=== PATIENT | male | born 1945 | race Caucasian/White ===

== ENCOUNTER 2020-07-03 12:39 | Inpatient (IN) | payer MEDICARE, OTHER, MEDICAID, SELFPAY ==
[2020-07-03] VITALS (11 sets, daily range): BP systolic 118–138; BP diastolic 69–93; PULSE 70–92; RESP 14–18; TEMP 36.4–36.9; O2SAT 93–100; BMI 29.7; BMI 29.8
--- NOTE | 2020-07-03 13:01 | EKG12_ITS ---
Test Reason : SOB Blood Pressure : / mmHG Vent. Rate : 091 BPM Atrial Rate : 091 BPM P-R Int : 144 ms QRS Dur : 152 ms QT Int : 404 ms P-R-T Axes : 060 -47 013 degrees QTc Int : 496 ms Sinus rhythm with Premature atrial complexes Left axis deviation Right bundle branch block Abnormal ECG Confirmed by RENÉE AHMADI, MARGAUX ([id number]), continuity editor DORINA TIJERINA ([id number]) on 07/08/2020 9:30:41 A M Referred By: JAXON Confirmed By:PAM CHINCHILLA MD
--- NOTE | 2020-07-03 13:15 | RAD_ITS ---
STUDY: X-RAY CHEST REASON FOR EXAM: Male, 75 years old. Recently COVID positive, from alf, more lethargic TECHNIQUE: Single AP portable view of the chest. COMPARISON: Comparison is made with prior study dated 12/08/2016. FINDINGS: EKG electrodes are seen. There is evidence of patchy bilateral pulmonary infiltrates worse in the left lower lobe. There is no demonstrated pleural abnormality. There is mild cardiac enlargement. Normal mediastinum and yandel. Normal visualized pulmonary arteries. There is atherosclerotic tortuosity of the aortic arch and descending thoracic aorta. There are diffuse degenerative changes of the visualized thoracic spine. Normal visualized ribs, clavicles, and shoulders. There is no demonstrated abnormality of the visualized soft tissue structures of the upper abdomen. RAD/Chest 1 View (Portable) IMPRESSION: Patchy bilateral pulmonary infiltrates worse in the lower lobes. Electronically Signed: Jose Villalobos, at 13:56 EST , Service support ,
[2020-07-03] MEDS: 0.9% Normal Saline 1,000 ML 125 ML IV ×2 (13:48→23:59)
[2020-07-03 13:52] LABS: Absolute Lymphocyte Count 0.86 X10^3/uL (0.83-4.51); Absolute Neutrophil Count 7.6 X10^3/uL (2.0-7.7); Basophil# 0.01 X10^3/uL; Basophil% 0.1 % (0-1); Eosinophil# 0.03 X10^3/uL; Eosinophils% 0.3 % (0-5); Hematocrit 35.2 % (40-54); Hemoglobin 11.1 g/dL (13.0-16.5); Lymphocyte # 0.86 X10^3/ul (4.0); Lymphocyte % 8.8 % (19-41); Mean Corp Hgb Conc 31.5 g/dL (32-36); Mean Corpuscular Hgb 28.8 pg (27.0-32.0); Mean Corpuscular Volume 91.2 fL (80-94); Mean Platelet Vol. 9.4 fl (6.2-12.0); Monocyte# 1.16 X10^3/uL; Monocyte% 11.8 % (0-10); NRBC Flagged by Analyzer 0 % (0-5); Neutrophil # 7.64 X10^3/uL (2.7-7.7); Platelet Count 403 K/mm3 (150-450); RBC Distribution Width CV 13.1 % (11.6-14.6); RBC Distribution Width SD 43.4 fl (35.1-43.9); Red Blood Count 3.86 M/mm3 (4.6-6.2); White Blood Count 9.8 K/mm3 (4.4-11.0)
[2020-07-03 14:05] LABS: Fibrinogen 616 mg/dl (203-444)
[2020-07-03 14:12] LABS: ALB/GLOB Ratio 0.6 RATIO (0.9-2.4); AST(SGOT) 28 U/L (15-37); Alanine Aminotransfer ALT/SGPT 38 U/L (16-61); Albumin, Serum 2.6 g/dL (3.2-5.0); Alkaline Phosphatase 80 U/L (45-117); Anion Gap 4 (5-15); BNP,B-Type NATRIURETIC PEPTIDE 72.5 pg/mL (0-100); BUN 30 mg/dL (7-18); BUN/Creat Ratio 30.5 RATIO (10-20); CPK Total, Creatine Kinase 61 U/L (39-308); Calcium,Total 9.1 mg/dL (8.5-10.1); Chloride 100 mmol/L (98-107); Creatinine, Serum 0.98 mg/dL (0.70-1.30); EST Glomerular Filtration Rate 79 mL/min (>60); Est Glom Filt Rate - Afr Amer 96 mL/min (>60); Estimated Creatinine Clearance 72.59 ml/min; Globulin 4.7 g/dL (2.2-4.2); Glucose 191 mg/dL (74-106); LDH 271 U/L (87-241); Potassium 3.7 mmol/L (3.5-5.1); Protein, Total 7.3 g/dL (6.4-8.2); Sodium Level 138 mmol/L (136-145)
--- NOTE | 2020-07-03 14:12 | ED.VIS.GEN ---
History of Present Illness Chief Complaint: Shortness of Breath Informant: Patient Narrative: This is a 75-year-old male who is presenting from longterm with COVID-19. He has concerns dementia but is more confused than normal per longterm.. He has been taking azithromycin and hydroxychloroquine as an outpatient. He has had nausea and vomiting for couple days. He is not been eating and drinking per the longterm f for 3 to 4 days. Today he was having desaturations on oxygen into the 80s. DNR [facility] arrest on the chart. - Past Medical History (1) Insomnia Status: Chronic (2) Charcot ankle Status: Chronic (3) Diabetes Status: Chronic Past Medical History - Allergies and Home Meds Allergies/Adverse Reactions: Allergies No Known Allergies Allergy (Verified 12/01/16 19:19) Primary Care Physician: Nasir López MD [NON-STAFF] - Past Medical History: - - Parkinson's Surgical History: cholecystectomy Lives: [facility] Smoking Status: Never smoker Drugs: None Review of Systems General: Reports: Fever, Malaise. Denies: Chills, Sweats Eyes: Denies: Visual changes - bilaterally, Diplopia ENT: Denies: Rhinorrhea, Sore throat Cardiovascular: Denies: Chest pain, Palpitations Respiratory: Reports: Dyspnea, Cough. Denies: Dyspnea on exertion Gastrointestinal: Denies: Abdominal pain, Nausea, Vomiting, Diarrhea, Melena, Hematochezia Genitourinary: Denies: Dysuria, Hematuria, Frequency Musculoskeletal: Reports: Extremity Pain. Denies: Back pain Skin: Denies: Rash, Wounds Neurological: Reports: Headache. Denies: Weakness, Numbness Physical Exam Vital Signs/Narrative: Vital Signs Temp Pulse Resp BP Pulse Ox 07/03/20 12:54 93 07/03/20 12:46 100 07/03/20 12:40 97.5 F L 79 18 118/69 100 Inital Vital Signs reviewed: Yes General: Well nourished, Well developed, No Acute Distress Head: Normocephalic, Atraumatic Eyes: Perrl, EOMI ENT: No rhinorrhea, Dry mucous membranes Neck: Supple, Nontender Cardiovascular: Regular rate, Regular rhythm, No murmurs Respiratory: No distress, CTA bilaterally, Chest nontender Abdomen: Soft, Nontender, Nondistended, Normal bowel sounds Back: Nontender, Normal Inspection Extremities: No edema, - - Chronic changes in the feet consistent with Charcot joint Skin: Normal color, No rash Neurological: Alert, Cranial nerves II-XII grossly intact, Normal Strength, Normal Sensation, - - Orientated to Alban Hardy DO, MS, FACEP Psychological: Normal affect, Normal Mood Diagnostic/Tx/Re-eval Clinical Impression(s) from Imaging Studies Chest X-Ray 07/03/20 13:15 IMPRESSION: Patchy bilateral pulmonary infiltrates worse in the lower lobes. Electronically Signed: Jose Griselda, at 13:56 EST , Service support , Chest CTA 07/03/20 14:32 IMPRESSION: Multiple small pulmonary emboli in the upper lobe pulmonary arterial branches. Diffuse bilateral pulmonary infiltrates as described. Electronically Signed: Jose Griselda, at 15:10 EST , Service support , Laboratory Last Values WBC 9.8 K/mm3 (4.4-11.0) 07/03/20 13:25 RBC 3.86 M/mm3 (4.6-6.2) L 07/03/20 13:25 Hgb 11.1 g/dL (13.0-16.5) L 07/03/20 13:25 Hct 35.2 % (40-54) L 07/03/20 13:25 MCV 91.2 fL (80-94) 07/03/20 13:25 MCH 28.8 pg (27.0-32.0) 07/03/20 13:25 MCHC 31.5 g/dL (32-36) L 07/03/20 13:25 RDW Std Deviation 43.4 fl (35.1-43.9) 07/03/20 13:25 RDW Coeff of Srinivasa 13.1 % (11.6-14.6) 07/03/20 13:25 Plt Count 403 K/mm3 (150-450) 07/03/20 13:25 MPV 9.4 fl (6.2-12.0) 07/03/20 13:25 Immature Gran % (Auto) 1.000 % (0.0-0.9) H 07/03/20 13:25 Neut % (Auto) 78.0 % (47-70) H 07/03/20 13:25 Lymph % (Auto) 8.8 % (19-41) L 07/03/20 13:25 Sac % (Auto) 11.8 % (0-10) H 07/03/20 13:25 Eos % (Auto) 0.3 % (0-5) 07/03/20 13:25 Baso % (Auto) 0.1 % (0-1) 07/03/20 13:25 Absolute Neuts (auto) 7.6 X10^3/uL (2.0-7.7) 07/03/20 13:25 Absolute Lymphs (auto) 0.86 X10^3/uL (0.83-4.51) 07/03/20 13:25 Nucleated RBC % 0 % (0-5) 07/03/20 13:25 Fibrinogen 616 mg/dl (203-444) H 07/03/20 13:25 Sodium 138 mmol/L (136-145) 07/03/20 13:25 Potassium 3.7 mmol/L (3.5-5.1) 07/03/20 13:25 Chloride 100 mmol/L (98-107) 07/03/20 13:25 Carbon Dioxide 34.0 mmol/L (21.0-32.0) H 07/03/20 13:25 Anion Gap 4 (5-15) L 07/03/20 13:25 BUN 30 mg/dL (7-18) H 07/03/20 13:25 Creatinine 0.98 mg/dL (0.70-1.30) 07/03/20 13:25 Estim Creat Clear Calc 72.59 ml/min 07/03/20 13:25 Est GFR (MDRD) Af Amer 96 mL/min (>60) 07/03/20 13:25 Est GFR (MDRD) Non-Af 79 mL/min (>60) 07/03/20 13:25 BUN/Creatinine Ratio 30.5 RATIO (10-20) H 07/03/20 13:25 Glucose 191 mg/dL (74-106) H 11/18/20 13:25 Lactic Acid 1.8 mmol/L (0.4-1.9) 07/03/20 13:25 Calcium 9.1 mg/dL (8.5-10.1) 07/03/20 13:25 Total Bilirubin 0.60 mg/dL (0.20-1.00) 07/03/20 13:25 AST 28 U/L (15-37) 07/03/20 13:25 ALT 38 U/L (16-61) 07/03/20 13:25 Alkaline Phosphatase 80 U/L (45-117) 07/03/20 13:25 Lactate Dehydrogenase 271 U/L (87-241) H 07/03/20 13:25 Total Creatine Kinase 61 U/L (39-308) 07/03/20 13:25 Troponin I 0.022 ng/mL (<0.045) 07/03/20 13:25 C-React Prot Ext Range 144.00 mg/L (0.0-3.0) H 07/03/20 13:25 B-Natriuretic Peptide 72.5 pg/mL (0-100) 07/03/20 13:25 Total Protein 7.3 g/dL (6.4-8.2) 07/03/20 13:25 Albumin 2.6 g/dL (3.2-5.0) L 07/03/20 13:25 Globulin 4.7 g/dL (2.2-4.2) H 07/03/20 13:25 Albumin/Globulin Ratio 0.6 RATIO (0.9-2.4) L 07/03/20 13:25 Procalcitonin 0.07 ng/mL (0.00-0.09) 07/03/20 13:25 - EKG Initial EKG Interpretation: Sinus Rhythm - EKG shows a sinus rhythm with frequent PACs. Noted right bundle branch block. Rate is 91. - Medical Decision Making Patient has COVID-19. He is showing signs of dehydration and altered mental status. He has had episodes of hypoxemia. Patient received dental hydration, Decadron, Rocephin and azithromycin. CTA of the chest demonstrates multiple small areas of embolism. He was given a dose of Eliquis. Our plan will be admission into the hospital. ED Disposition - Plan for ED Patient: Disposition: Acute Care Hospital [facility] Diagnosis: COVID-19, Hypoxia, Parkinson's disease dementia, Dehydration, Encephalopathy acute, Pulmonary embolism Referrals: Nasir López MD [NON-STAFF] -
[2020-07-03 14:15] LABS: Procalcitonin 0.07 ng/mL (0.00-0.09)
[2020-07-03 14:22] LABS: Lactic Acid 1.8 mmol/L (0.4-1.9)
[2020-07-03] MEDS: Ondansetron 4 MG/2 ML Vial IV (14:23)
[2020-07-03] MEDS: dexAMETHasone 10 MG/ML Vial IV (14:24)
--- NOTE | 2020-07-03 14:32 | CT_ITS ---
STUDY: CTA CHEST REASON FOR EXAM: Male, 75 years old. LETHARGIC,DESTATING,COVID+ RADIATION DOSAGE (If Supplied By Facility): CTDIvol = ( 11.44 ) mGy, DLP = ( 563.45 ) mGycm TECHNIQUE: The examination was performed with the intravenous administration of IV 100mL Isovue-370. Post-processing of the angiographic images was performed, with multiplanar reformation and 3D reconstruction. Individualized dose optimization techniques were used for this CT. COMPARISON: None. FINDINGS: Multiple intraluminal filling defects in small branches of the right and left upper lobe pulmonary arteries suggestive of a pulmonary emboli. There is atherosclerotic calcification of the aortic arch and descending thoracic aorta with tortuosity. There is no demonstrated aortic dissection. There are calcifications of the coronary arteries. There are visualized mediastinal lymph nodes, which are within normal size limits, and with normal morphology. Normal hilar regions. Normal visualized trachea and bronchi. The lungs are well expanded. Diffuse bilateral infiltrates more pronounced in the lower lobes. Infiltrates also seen in the upper lobes as well. Calcified pleural plaques at the level of the diaphragms bilaterally. Normal chest wall structures. There are degenerative changes of thoracic spine. Normal visualized upper abdomen. CT/CTA Chest W/WO Contrast IMPRESSION: Multiple small pulmonary emboli in the upper lobe pulmonary arterial branches. Diffuse bilateral pulmonary infiltrates as described. Electronically Signed: Jose Villalobos, at 15:10 EST , Service support ,
[2020-07-03] MEDS: Ceftriaxone 1 GM/50 ML BAG IV (15:01)
--- NOTE | 2020-07-03 15:51 | HP.PCM_ITS ---
History of Present Illness Date of Admission: 07/03/20 Chief Complaint: shortness of breath The patient is a 75 year old M with a past medical history as outlined who was admitted through the ED on 07/03/2020 with a complaint of shortness of breath. Patient was [facility] with Covid as he had had nausea and vomiting and had not been eating or drinking well the last day. Test was done and he was positive. He was put on azithromycin and hydroxychloroquine as well as p.o. prednisone 40 mg daily in the jail. However patient was deteriorating and Was desaturating into the 80s in the Retirement so He Was Brought into the ED Today. Patient was confused and not able to give much of a history. Most of the history was obtained from his granddaughter who is a nurse in the ICU and from the ED physicians documentation. In the ED, vitals showed temperature of 98.2 with blood pressure of 133/85, pulse rate of 75 respiratory rate of 16. He was requiring 8 L of oxygen and is usually not on oxygen in the jail. Chemistry was unremarkable and lactic acid was 1.4. BNP was not elevated initial troponin was negative. Procalcitonin was 0.07. CBC was also unremarkable. ET of the chest showed diffuse bilateral pulmonary infiltrates as well as multiple small pulmonary emboli in the upper lobe pulmonary arterial branches. He has been admitted to be managed for acute hypoxic respiratory failure due to COVID-19 infection and bilateral pulmonary emboli. [] Past Medical History Past Medical History (Chronic Problems): Chronic Problems Diabetes (Chronic) Neuropathy (Chronic) Charcot ankle (Chronic) Insomnia (Chronic) Allergies No Known Allergies Allergy (Verified 12/01/16 19:19) Home Medications: Ambulatory Orders Medication Instructions Recorded Acetaminophen [Tylenol Extra 500 mg PO BID PRN 07/03/20 Strength] Aspirin E.C. [Ecotrin] 81 mg PO DAILY@0800 07/03/20 Cholecalciferol (Vitamin D3) 2,000 unit PO DAILY 07/03/20 [D3-1999] Cyanocobalamin (Vitamin B-12) 500 mcg PO DAILY 07/03/20 [Vitamin B-12] Donepezil HCl 10 mg PO QHS 07/03/20 Folic Acid 1 mg PO DAILY 07/03/20 Furosemide [Lasix] 40 mg PO DAILY 07/03/20 Guaifenesin/Dextromethorphan 10 ml PO Q6H PRN 07/03/20 [Tussin Dm Liquid] Losartan Potassium [Cozaar] 25 mg PO DAILY 07/03/20 Melatonin 3 mg PO QHS 07/03/20 Memantine HCl 5 mg PO BID 07/03/20 Nitrofurantoin Macrocrystal 25 mg PO QHS 07/03/20 [Macrodantin] Potassium Chloride [Klor-Con M10] 10 meq PO DAILY 07/03/20 Sertraline HCl [Zoloft] 12.5 mg PO DAILY 07/03/20 Tamsulosin HCl [Flomax] 0.8 mg PO QHS 07/03/20 Tizanidine HCl 2 mg PO BID 07/03/20 metFORMIN HCl [Glucophage] 500 mg PO BIDCM 07/03/20 Surgical History: cholecystectomy Psychiatric History: No pertinent psych hx Lives: Retirement Smoking Status: Never smoker Drugs: None Review of Systems Unable to obtain accurate/complete ROS d/t: patient confused and demented VTE Information - Inpt Only VTE Present on Admission: Yes VTE Pharm Prophylaxis ordered?: Yes Patient Problems: Active and Suspected Problems COVID-19 (Acute) Hypoxia (Acute) Parkinson's disease dementia (Acute) Dehydration (Acute) Encephalopathy acute (Acute) Pulmonary embolism (Acute) - Physical Exam Vitals/I&O's: Vital Signs Temp Pulse Resp BP Pulse Ox 98.2 F 70 14 126/86 H 100 07/03/20 15:43 07/03/20 15:43 07/03/20 15:43 07/03/20 15:43 07/03/20 15:43 Oxygen Flow Rate (L/min) 8 Oxygen Delivery Method Nasal Cannula Weight: 219 lb 5.759 oz Body Mass Index (BMI) 29.7 Intake and Output for Last 24 Hours 07/01/20 07/02/20 07/03/20 23:59 23:59 23:59 Intake Total 285.42 / 285.42 Balance 285.42 / 285.42 General: Alert, Confused, Disoriented HEENT: Atraumatic, PERRLA, EOMI, Normocephalic Oral: Dry Mucosa Neck: Supple, No JVD, Negative Carotid Bruits Lungs: Wheezes - diminished breath sounds bibasally, no wheezes or crackles. On 8L of oxygen Cardiovascular: Regular rate, Regular Rhythm, Normal S1, Normal S2, No murmurs Abdomen: Bowel Sounds Present, Soft, Non Tender Extremities: No clubbing, No cyanosis, No edema, Capillary Refill Less than 3 Seconds Skin: No rashes, No breakdown Musculoskeletal: No Tenderness to Palpation of Joints or Extremities Lymphatic: No Cervical, Supraclavicular, or Inguinal Adenopathy Neurological: Cranial nerves II-XII grossly intact, Neuro grossly intact, Motor Exam 5/5 strength throughout Psych/Mental Status: Normal Affect, Appropriate, Alert and oriented to time, place, person, mood and affect Laboratory Results 07/03/20 13:25: WBC 9.8, RBC 3.86 L, Hgb 11.1 L, Hct 35.2 L, MCV 91.2, MCH 28.8, MCHC 31.5 L, RDW Std Deviation 43.4, RDW Coeff of Srinivasa 13.1, Plt Count 403, MPV 9.4, Immature Gran % (Auto) 1.000 H, Neut % (Auto) 78.0 H, Lymph % (Auto) 8.8 L, [place] % (Auto) 11.8 H, Eos % (Auto) 0.3, Baso % (Auto) 0.1, Absolute Neuts (auto) 7.6, Absolute Lymphs (auto) 0.86, Nucleated RBC % 0 07/03/20 13:25: Fibrinogen 616 H 07/03/20 13:25: Sodium 138, Potassium 3.7, Chloride 100, Carbon Dioxide 34.0 H, Anion Gap 4 L, BUN 30 H, Creatinine 0.98, Estim Creat Clear Calc 72.59, Est GFR (MDRD) Af Amer 96, Est GFR (MDRD) Non-Af 79, BUN/Creatinine Ratio 30.5 H, Glucose 191 H, Calcium 9.1, Total Bilirubin 0.60, AST 28, ALT 38, Alkaline Phosphatase 80, Lactate Dehydrogenase 271 H, Total Creatine Kinase 61, Troponin I 0.022, C-React Prot Ext Range 144.00 H, Total Protein 7.3, Albumin 2.6 L, Globulin 4.7 H, Albumin/Globulin Ratio 0.6 L 07/03/20 13:25: Lactic Acid 1.8 07/03/20 13:25: B-Natriuretic Peptide 72.5 07/03/20 13:25: Procalcitonin 0.07 Diagnostic Data Chest X-Ray 07/03/20 13:15 IMPRESSION: Patchy bilateral pulmonary infiltrates worse in the lower lobes. Electronically Signed: Jose Villalobos, at 13:56 EST , Service support , Chest CTA 07/03/20 14:32 IMPRESSION: Multiple small pulmonary emboli in the upper lobe pulmonary arterial branches. Diffuse bilateral pulmonary infiltrates as described. Electronically Signed: Jose Villalobos, at 15:10 EST , Service support , Current Medications Sodium Chloride () 1,000 mls @ 125 mls/hr IV .Q8H LUANNE Last Infusion: 07/03/20 15:41 Dose: 0 mls/hr Documented by: Assessment/Plan All Active Problems COVID-19 (Acute) Hypoxia (Acute) Parkinson's disease dementia (Acute) Dehydration (Acute) Encephalopathy acute (Acute) Pulmonary embolism (Acute) Tobacco dependency (Acute) Fever (Acute) Strep throat (Acute) Confusion (Acute) 75 y/o admitted with a complaint of shortness of breath # Acute hypoxic respiratory failure due to COVID 19 infection * currently on 8L of oxygen. * CTA showed bilateral PE * admit to Covid unit * titrate oxygen to maintain sats>90% * IV decadrone * consult pulmonology and ID * # Bilateral PE due to COVID 19 infection * CTA showed PE * start on therapeutic dose of eliquis * pulmonology consulted * # COVID 19 infection * As under respiratory failure. * #Hypertension: On losartan #Dementia: On donepezil and memantine # Diabetes mellitus: On metformin. Insulin sliding scale. Checks AC at bedtime. VT prophylaxis: Not indicated as patient admitted with bilateral PE CODE STATUS: DNR CCA no intubation * CODE STATUS discussed with patient's granddaughter who is a nurse in the ICU- [facility]. She stated the patient is DNR CCA no intubation. correction papers also confirmed this. Inpatient E&M: 29285 Init Hosp L3 Procedures: 63828 Advncd Care Plan 30 Min
[2020-07-03] MEDS: APIXABAN 5 MG TABLET PO (15:59)
--- NOTE | 2020-07-03 16:31 | ED.RN ---
THIS NURSE CALLED PT'S LIFE PARTNER, JESSICA, AND UPDATED ON PT'S CONDITION AND ADMISSION TO [facility].
[2020-07-03 16:56] LABS: Lactic Acid 1.4 mmol/L (0.4-1.9)
[2020-07-03] MEDS: Insulin Lispro 100 UNIT/ML INSULN.PEN SC (20:59)
[2020-07-03] MEDS: MELATONIN 3 MG TABLET PO (21:00)
[2020-07-03] MEDS: Donepezil HCl 10 MG Tablet PO (21:00)
[2020-07-03] MEDS: tiZANidine HCl 2 MG Tablet PO (21:00)
[2020-07-03] MEDS: APIXABAN 5 MG TABLET 10 MG PO (21:00)
[2020-07-03] MEDS: Tamsulosin HCl 0.4 MG Capsule 0.8 MG PO (21:00)
[2020-07-03] MEDS: Memantine Hydrochloride 5 MG Tablet PO (21:00)
[2020-07-03 23:31] LABS: Bedside Glucose 226 mg/dL (70-110)
[2020-07-04] VITALS (10 sets, daily range): BP systolic 110–123; BP diastolic 58–82; PULSE 61–100; RESP 14–18; TEMP 35.9–36.8; O2SAT 92–98
[2020-07-04] MEDS: Insulin Lispro 100 UNIT/ML INSULN.PEN SC ×4 (06:21→22:10)
[2020-07-04 06:30] LABS: Bedside Glucose 178 mg/dL (70-110)
--- NOTE | 2020-07-04 07:32 | PN_ITS ---
Patient Problems: Active and Suspected Problems COVID-19 (Acute) Hypoxia (Acute) Parkinson's disease dementia (Acute) Dehydration (Acute) Encephalopathy acute (Acute) Pulmonary embolism (Acute) Reason for Visit: Acute COVID-19 pneumonitis Pulmonary embolism Subjective: Patient is a 75-year-old gentleman resident of [facility] recently diagnosed with COVID-19 brought to the emergency department with worsening respiratory status in addition to progressive generalized weakness with anorexia nausea and vomi ting. Imaging studies obtained in the ED demonstrated Multiple small pulmonary emboli in the upper lobe pulmonary arterial branches. Diffuse bilateral pulmonary infiltrates. Admitted to a monitored bed for subsequent management Objective: GENERAL: Resting comfortably HEENT: Atraumatic; EYES; Anicteric, Normal Conjunctiva NECK; supple, normal thyroid, RESPIRATORY: Diminished to auscultation CARDIOVASCULAR: Regular S1 S2, GI: soft, normoactive bowel sounds, : No Renal angle tenderness; EXTREMITIES: No edema, no clubbing, MUSCULOSKELETAL: no muscle waisting NEURO: Awake; no lateralizing signs. SKIN: No Rash Vitals/I&O's: Vital Signs Temp Pulse Resp BP Pulse Ox 96.7 F L 73 18 118/82 H 96 07/04/20 01:33 07/04/20 07:09 07/04/20 01:33 07/04/20 01:33 07/04/20 01:33 Oxygen Flow Rate (L/min) 6 Oxygen Delivery Method Nasal Cannula Weight: 99.5 kg Body Mass Index (BMI) 29.7 Intake and Output for Last 24 Hours 07/02/20 07/03/20 07/04/20 23:59 23:59 23:59 Intake Total 1305.00 / 1305.00 208.33 / 208.33 Balance 1305.00 / 1305.00 208.33 / 208.33 Microbiology Past 72 Hours 07/03/20 23:56 Urine, Clean Catch Streptococcus pneumoniae Antigen (M - Final 07/03/20 23:56 Urine, Clean Catch Legionella Antigen - Final Laboratory Results 07/03/20 13:25: WBC 9.8, RBC 3.86 L, Hgb 11.1 L, Hct 35.2 L, MCV 91.2, MCH 28.8, MCHC 31.5 L, RDW Std Deviation 43.4, RDW Coeff of Srinivasa 13.1, Plt Count 403, MPV 9.4, Immature Gran % (Auto) 1.000 H, Neut % (Auto) 78.0 H, Lymph % (Auto) 8.8 L, [place] % (Auto) 11.8 H, Eos % (Auto) 0.3, Baso % (Auto) 0.1, Absolute Neuts (auto) 7.6, Absolute Lymphs (auto) 0.86, Nucleated RBC % 0 07/03/20 13:25: Fibrinogen 616 H 07/03/20 13:25: Sodium 138, Potassium 3.7, Chloride 100, Carbon Dioxide 34.0 H, Anion Gap 4 L, BUN 30 H, Creatinine 0.98, Estim Creat Clear Calc 72.59, Est GFR (MDRD) Af Amer 96, Est GFR (MDRD) Non-Af 79, BUN/Creatinine Ratio 30.5 H, Glucose 191 H, Calcium 9.1, Total Bilirubin 0.60, AST 28, ALT 38, Alkaline Phosphatase 80, Lactate Dehydrogenase 271 H, Total Creatine Kinase 61, Troponin I 0.022, C-React Prot Ext Range 144.00 H, Total Protein 7.3, Albumin 2.6 L, Globulin 4.7 H, Albumin/Globulin Ratio 0.6 L 07/03/20 13:25: Lactic Acid 1.8 07/03/20 13:25: B-Natriuretic Peptide 72.5 07/03/20 13:25: Procalcitonin 0.07 07/03/20 16:10: Lactic Acid 1.4 07/03/20 17:45: Total Creatine Kinase Cancelled 07/03/20 17:45: B-Natriuretic Peptide Cancelled 07/03/20 17:45: Procalcitonin Cancelled 07/03/20 20:58: POC Glucose 226 H 07/04/20 06:19: POC Glucose 178 H Current Medications Acetaminophen (Acetaminophen 325 Mg Tablet) 650 mg PO Q4H PRN PRN PRN Reason: Pain Score 1-3 /Temp>100.7 Albuterol Sulfate (Albuterol Sulfate 8 Gm Inhaler (60 Puffs)) 2 puff INHALATION Q4H PRN PRN PRN Reason: Shortness of Breath/Wheezing Apixaban (Apixaban 5 Mg Tablet) 10 mg PO BID LUANNE; Taper Stop: 01/06/21 21:59 Last Admin: 07/03/20 21:00 Dose: 10 mg Documented by: Aspirin (Aspirin E.C. 81 Mg Tablet) 81 mg PO DAILY@0800 [facility] Cholecalciferol (Cholecalciferol (Vit D3) 1,000 Unit (25mcg)) 2,[facility] Cyanocobalamin (Cyanocobalamin 500 Mcg Tablet) 500 mcg [facility]ILY[facility] Dexamethasone Sodium Phosphate (Dexamethasone 10 Mg/Ml Vial) 6 [facility] Dextrose (Dextrose 50%-Water 25 Gm/50 Ml Disp.Syrin) 0 gm IV X1 PRN; Protocol PRN Reason: Hypoglycemia Donepezil HCl (Donepezil Hcl 10 Mg Tablet) 10 mg PO QHS [facility] Last Admin: 07/03/20 21:00 Dose: 10 mg Documented by: Folic Acid (Folic Acid 1 Mg Tablet) 1 [facility] Furosemide (Furosemide 40 Mg Tablet) 40 [facility] Glucagon (Glucagon 1 Mg/Ml Syringe) 1 mg IM .X1 PRN PRN Reason: Hypoglycemia Guaifenesin (Guaifenesin Dm 10 Ml Udc) 10 ml PO Q6H PRN PRN Reason: CONGESTION Insulin Human Lispro (Insulin Lispro 100 Unit/Ml Insuln.Pen) 0 unit SC [facility]; Protocol Last Admin: 07/04/20 06:21 Dose: 1 u Documented by: Losartan Potassium (Losartan Potassium 25 Mg Tablet) [facility] Melatonin (Melatonin 3 Mg Tablet) 3 mg PO QHS [facility] Last Admin: 07/03/20 21:00 Dose: 3 mg Documented by: Memantine (Memantine Hydrochloride 5 Mg Tablet) 5 mg PO 0800,2200 [facility] Last Admin: 07/03/20 21:00 Dose: 5 mg Documented by: Metformin HCl (Metformin Hcl 500 Mg Tablet) [facility] Morphine Sulfate (Morphine 2 Mg/Ml Syringe) 1 - 2 mg IV Q4H PRN PRN PRN Reason: Pain Score 4-5 Morphine Sulfate (Morphine 2 Mg/Ml Syringe) 2 - 4 mg IV Q3H PRN PRN PRN Reason: Pain Score 6-10 Ondansetron HCl (Ondansetron 4 Mg/2 Ml Vial) 4 mg IV Q8H PRN PRN PRN Reason: NAUSEA/VOMITING Oxycodone HCl (Oxycodone 5 Mg Tablet) 5 mg PO Q4H PRN PRN PRN Reason: Pain Score 4-5 Potassium Chloride (Potassium Chloride 10 Meq Tablet) 10 meq PO [facility]ILY[facility] Prochlorperazine Edisylate (Prochlorperazine 10 Mg/2 Ml Vial) 10 mg IV Q6H PRN PRN PRN Reason: Nausea/Vomiting Sertraline HCl (Sertraline Hcl 25 Mg Tablet) 12.5 mg PO [facility]ILYSA[facility] Sodium Chloride (0.9% Saline Lock 10 Ml Syringe) 10 - 40 ml IV UD PRN PRN Reason: SALINE FLUSH Tamsulosin HCl (Tamsulosin Hcl 0.4 Mg Capsule) 0.8 mg PO QHS [facility] Last Admin: 07/03/20 21:00 Dose: 0.8 mg Documented by: Tizanidine HCl (Tizanidine Hcl 2 Mg Tablet) 2 mg PO 0800,2200 [facility] Last Admin: 07/03/20 21:00 Dose: 2 mg Documented by: STROKE Vital Signs/Narrative: Vital Signs Pulse 07/04/20 07:09 74 Medical Necessity - Tobacco Use Smoking Status: Never smoker Assessment/Plan All Active Problems COVID-19 (Acute) Hypoxia (Acute) Parkinson's disease dementia (Acute) Dehydration (Acute) Encephalopathy acute (Acute) Pulmonary embolism (Acute) Tobacco dependency (Acute) Fever (Acute) Strep throat (Acute) Confusion (Acute) Patient is a 75-year-old gentleman resident of an [facility] recently diagnosed with COVID-19 brought to the emergency department with worsening respiratory status in addition to progressive generalized weakness with anorexia nausea and vomiting. Imaging studies obtained in the ED demonstrated Multiple small pulmonary emboli in the upper lobe pulmonary arterial branches. Diffuse bilateral pulmonary infiltrates. Admitted to a monitored bed for subsequent management 1. Acute hypoxic respiratory failure secondary to COVID-19 pneumonia ?Patient admitted to monitored bed placed on supplemental oxygen titrated to keep saturation greater than 90. Patient was started on Decadron and consultation placed to pulmonary and infectious disease 2. Hypercoagulable state secondary to COVID-19 (bilateral PE) ?Patient was started on Eliquis 3. BPH ?Patient is on Flomax did continue 4. Hypertension - Blood pressure controlled, home medications continued with dose adjustment as needed 5. Diabetes mellitus type II - Controlled,patient's oral hypoglycemics held. -Placed on long acting insulin, Accu-Cheks a.c. and at bedtime and covered with sliding scale insulin 6. Physical deconditioning - Requested for PT OT eval and social media analyst to assist with discharge planning Inpatient E&M: 22784 Subs Hosp L3
[2020-07-04] MEDS: Losartan Potassium 25 MG Tablet PO (08:02)
[2020-07-04] MEDS: Folic Acid 1 MG Tablet PO (08:02)
[2020-07-04] MEDS: tiZANidine HCl 2 MG Tablet PO ×2 (08:02→22:05)
[2020-07-04 08:03] LABS: Absolute Neutrophil Count 8.3 X10^3/uL (2.0-7.7); Basophil# 0.01 X10^3/uL; Basophil% 0.1 % (0-1); Hematocrit 33.8 % (40-54); Hemoglobin 10.4 g/dL (13.0-16.5); Lymphocyte % 6.9 % (19-41); Mean Corp Hgb Conc 30.8 g/dL (32-36); Mean Corpuscular Hgb 28.1 pg (27.0-32.0); Mean Corpuscular Volume 91.4 fL (80-94); Mean Platelet Vol. 9.6 fl (6.2-12.0); Monocyte# 0.97 X10^3/uL; Monocyte% 9.6 % (0-10); NRBC Flagged by Analyzer 0 % (0-5); Neutrophil # 8.28 X10^3/uL (2.7-7.7); Platelet Count 401 K/mm3 (150-450); RBC Distribution Width CV 12.8 % (11.6-14.6); RBC Distribution Width SD 42.5 fl (35.1-43.9); White Blood Count 10.1 K/mm3 (4.4-11.0)
[2020-07-04] MEDS: Cyanocobalamin 500 MCG Tablet PO (08:03)
[2020-07-04] MEDS: dexAMETHasone 10 MG/ML Vial 6 MG IV (08:03)
[2020-07-04] MEDS: Aspirin E.C. 81 MG Tablet PO (08:03)
[2020-07-04] MEDS: Furosemide 40 MG Tablet PO (08:03)
[2020-07-04] MEDS: 0.9% Saline Lock 10 ML Syringe IV ×2 (08:03→11:49)
[2020-07-04] MEDS: metFORMIN HCl 500 MG Tablet PO ×2 (08:03→17:02)
[2020-07-04] MEDS: Memantine Hydrochloride 5 MG Tablet PO ×2 (08:03→22:04)
[2020-07-04] MEDS: SERTRALINE HCL 25 MG TABLET 12.5 MG PO (08:04)
--- NOTE | 2020-07-04 08:44 | NURSING ---
spoke with Dian at [facility], regarding nurse inquiring if pt dentures at [facility] and when last bm was. Number given to [facility] MS2 floor and Dian states she will call back with information.
[2020-07-04 08:51] LABS: ALB/GLOB Ratio 0.5 RATIO (0.9-2.4); AST(SGOT) 24 U/L (15-37); Alanine Aminotransfer ALT/SGPT 36 U/L (16-61); Albumin, Serum 2.4 g/dL (3.2-5.0); Alkaline Phosphatase 73 U/L (45-117); Anion Gap 2 (5-15); BUN 26 mg/dL (7-18); BUN/Creat Ratio 31.9 RATIO (10-20); Chloride 103 mmol/L (98-107); Creatinine, Serum 0.81 mg/dL (0.70-1.30); EST Glomerular Filtration Rate 98 mL/min (>60); Est Glom Filt Rate - Afr Amer 119 mL/min (>60); Estimated Creatinine Clearance 87.82 ml/min; Globulin 4.7 g/dL (2.2-4.2); Glucose 184 mg/dL (74-106); Potassium 4.3 mmol/L (3.5-5.1); Protein, Total 7.1 g/dL (6.4-8.2); Sodium Level 138 mmol/L (136-145)
--- NOTE | 2020-07-04 09:01 | PCM.CONS.PUL ---
Reason for Consult Date of Consultation: 07/04/20 Reason for Consultation: Acute hypoxemic respiratory failure secondary to COVID-19 pneumonia History of Present Illness: The patient is a 75-year-old male, with a history as outlined below, who presented from [facility] to the emergency department on July 03 with worsening shortness of breath and hypoxemia. History pertinent to the patient's hospitalization was obtained primarily via discussion with the patient's family, as he has baseline dementia and could not provide significant details. The patient began to experience generalized malaise and myalgias beginning sometime around June 21 or . He was subsequently tested for coronavirus on June 25 through his detention facility, which was reportedly positive. The patient was initially treated with azithromycin, prednisone and hydroxychloroquine. Over the course of the ensuing week the patient developed worsening shortness of breath and an increasing oxygen requirement. He also developed a cough, which per report, was mostly productive of clear sputum. On presentation to the emergency department, the patient was noted to be afebrile and hemodynamically stable. Laboratory evaluation revealed a normal white blood cell count. Chemistry profile was notable for a bicarbonate of 34 and creatinine of 0.98. Lactate was within normal limits. Liver function was within normal limits. Troponin was negative. Procalcitonin was within normal limits. A CTA chest was obtained which revealed multiple filling defects in the right and left upper lobe pulmonary arteries. Diffuse bilateral infiltrates were also noted. The patient was subsequently placed on Eliquis and Decadron. The patient was then admitted to the coronavirus cohort unit for further management. Past Medical History Past Medical History (Chronic Problems): Chronic Problems Diabetes (Chronic) Neuropathy (Chronic) Charcot ankle (Chronic) Insomnia (Chronic) Allergies No Known Allergies Allergy (Verified 12/01/16 19:19) Home Medications: Ambulatory Orders Medication Instructions Recorded Acetaminophen [Tylenol Extra 500 mg PO BID PRN 07/03/20 Strength] Aspirin E.C. [Ecotrin] 81 mg PO DAILY@0800 07/03/20 Cholecalciferol (Vitamin D3) 2,000 unit PO DAILY 07/03/20 [D3-2000] Cyanocobalamin (Vitamin B-12) 500 mcg PO DAILY 07/03/20 [Vitamin B-12] Donepezil HCl 10 mg PO QHS 07/03/20 Folic Acid 1 mg PO DAILY 07/03/20 Furosemide [Lasix] 40 mg PO DAILY 07/03/20 Guaifenesin/Dextromethorphan 10 ml PO Q6H PRN 07/03/20 [Tussin Dm Liquid] Losartan Potassium [Cozaar] 25 mg PO DAILY 07/03/20 Melatonin 3 mg PO QHS 07/03/20 Memantine HCl 5 mg PO BID 07/03/20 Nitrofurantoin Macrocrystal 25 mg PO QHS 07/03/20 [Macrodantin] Potassium Chloride [Klor-Con M10] 10 meq PO DAILY 07/03/20 Sertraline HCl [Zoloft] 12.5 mg PO DAILY 07/03/20 Tamsulosin HCl [Flomax] 0.8 mg PO QHS 07/03/20 Tizanidine HCl 2 mg PO BID 07/03/20 metFORMIN HCl [Glucophage] 500 mg PO BIDCM 07/03/20 Surgical History: cholecystectomy Psychiatric History: No pertinent psych hx Lives: Alf Smoking Status: Never smoker Drugs: None Review of Systems Unable to obtain accurate/complete ROS d/t: Due to encephalopathy/baseline dementia Patient Problems: Active and Suspected Problems COVID-19 (Acute) Hypoxia (Acute) Parkinson's disease dementia (Acute) Dehydration (Acute) Encephalopathy acute (Acute) Pulmonary embolism (Acute) Objective: The patient's most recent lab work, culture data and imaging studies have all been personally reviewed. - Physical Exam Vitals/I&O's: Vital Signs Temp Pulse Resp BP Pulse Ox 97.1 F L 77 14 110/58 L 92 07/04/20 07:55 07/04/20 07:55 07/04/20 07:55 07/04/20 07:55 07/04/20 07:55 Oxygen Flow Rate (L/min) 6 Oxygen Delivery Method Nasal Cannula Weight: 219 lb 5.759 oz Body Mass Index (BMI) 29.7 Intake and Output for Last 24 Hours 07/02/20 07/03/20 07/04/20 23:59 23:59 23:59 Intake Total 1305.00 / 1305.00 208.33 / 208.33 Balance 1305.00 / 1305.00 208.33 / 208.33 General: Disoriented, Lethargic HEENT: Atraumatic, Normocephalic Oral: Dry Mucosa Neck: Supple, No Nodes, Trachea Midline Lungs: Diminished, - - Poor inspiratory effort. Cardiovascular: Regular rate, Regular Rhythm Abdomen: Bowel Sounds Present, Soft, Non Tender Extremities: No clubbing, No cyanosis, No edema Skin: No breakdown Musculoskeletal: No Tenderness to Palpation of Joints or Extremities Lymphatic: No Cervical, Supraclavicular, or Inguinal Adenopathy Neurological: - - No focal deficits. Psych/Mental Status: Flat Affect Labs (Last 48 Hours) 07/03/20 07/03/20 07/03/20 13:25 13:25 13:25 WBC 9.8 RBC 3.86 L Hgb 11.1 L Hct 35.2 L MCV 91.2 MCH 28.8 MCHC 31.5 L RDW Std Deviation 43.4 RDW Coeff of Srinivasa 13.1 Plt Count 403 MPV 9.4 Immature Gran % (Auto) 1.000 H Neut % (Auto) 78.0 H Lymph % (Auto) 8.8 L Roberts % (Auto) 11.8 H Eos % (Auto) 0.3 Baso % (Auto) 0.1 Absolute Neuts (auto) 7.6 Absolute Lymphs (auto) 0.86 Nucleated RBC % 0 Fibrinogen 616 H Sodium 138 Potassium 3.7 Chloride 100 Carbon Dioxide 34.0 H Anion Gap 4 L BUN 30 H Creatinine 0.98 Estim Creat Clear Calc 72.59 Est GFR (MDRD) Af Amer 96 Est GFR (MDRD) Non-Af 79 BUN/Creatinine Ratio 30.5 H Glucose 191 H Lactic Acid Calcium 9.1 Magnesium Total Bilirubin 0.60 AST 28 ALT 38 Alkaline Phosphatase 80 Lactate Dehydrogenase 271 H Total Creatine Kinase 61 Troponin I 0.022 C-React Prot Ext Range 144.00 H B-Natriuretic Peptide Total Protein 7.3 Albumin 2.6 L Globulin 4.7 H Albumin/Globulin Ratio 0.6 L Procalcitonin POC Glucose 07/03/20 07/03/20 07/03/20 13:25 13:25 13:25 WBC RBC Hgb Hct MCV MCH MCHC RDW Std Deviation RDW Coeff of Srinivasa Plt Count MPV Immature Gran % (Auto) Neut % (Auto) Lymph % (Auto) Roberts % (Auto) Eos % (Auto) Baso % (Auto) Absolute Neuts (auto) Absolute Lymphs (auto) Nucleated RBC % Fibrinogen Sodium Potassium Chloride Carbon Dioxide Anion Gap BUN Creatinine Estim Creat Clear Calc Est GFR (MDRD) Af Amer Est GFR (MDRD) Non-Af BUN/Creatinine Ratio Glucose Lactic Acid 1.8 Calcium Magnesium Total Bilirubin AST ALT Alkaline Phosphatase Lactate Dehydrogenase Total Creatine Kinase Troponin I C-React Prot Ext Range B-Natriuretic Peptide 72.5 Total Protein Albumin Globulin Albumin/Globulin Ratio Procalcitonin 0.07 POC Glucose 07/03/20 07/03/20 07/03/20 16:10 17:45 17:45 WBC RBC Hgb Hct MCV MCH MCHC RDW Std Deviation RDW Coeff of Srinivasa Plt Count MPV Immature Gran % (Auto) Neut % (Auto) Lymph % (Auto) Roberts % (Auto) Eos % (Auto) Baso % (Auto) Absolute Neuts (auto) Absolute Lymphs (auto) Nucleated RBC % Fibrinogen Sodium Potassium Chloride Carbon Dioxide Anion Gap BUN Creatinine Estim Creat Clear Calc Est GFR (MDRD) Af Amer Est GFR (MDRD) Non-Af BUN/Creatinine Ratio Glucose Lactic Acid 1.4 Calcium Magnesium Total Bilirubin AST ALT Alkaline Phosphatase Lactate Dehydrogenase Total Creatine Kinase Cancelled Troponin I C-React Prot Ext Range B-Natriuretic Peptide Cancelled Total Protein Albumin Globulin Albumin/Globulin Ratio Procalcitonin POC Glucose 07/03/20 07/03/20 07/04/20 17:45 20:58 06:15 WBC RBC Hgb Hct MCV MCH MCHC RDW Std Deviation RDW Coeff of Srinivasa Plt Count MPV Immature Gran % (Auto) Neut % (Auto) Lymph % (Auto) Roberts % (Auto) Eos % (Auto) Baso % (Auto) Absolute Neuts (auto) Absolute Lymphs (auto) Nucleated RBC % Fibrinogen Sodium 138 Potassium 4.3 Chloride 103 Carbon Dioxide 33.0 H Anion Gap 2 L BUN 26 H Creatinine 0.81 Estim Creat Clear Calc 87.82 Est GFR (MDRD) Af Amer 119 Est GFR (MDRD) Non-Af 98 BUN/Creatinine Ratio 31.9 H Glucose 184 H Lactic Acid Calcium 9.0 Magnesium 2.0 Total Bilirubin 0.70 AST 24 ALT 36 Alkaline Phosphatase 73 Lactate Dehydrogenase Total Creatine Kinase Troponin I C-React Prot Ext Range B-Natriuretic Peptide Total Protein 7.1 Albumin 2.4 L Globulin 4.7 H Albumin/Globulin Ratio 0.5 L Procalcitonin Cancelled POC Glucose 226 H 07/04/20 07/04/20 06:15 06:19 WBC 10.1 RBC 3.70 L Hgb 10.4 L Hct 33.8 L MCV 91.4 MCH 28.1 MCHC 30.8 L RDW Std Deviation 42.5 RDW Coeff of Srinivasa 12.8 Plt Count 401 MPV 9.6 Immature Gran % (Auto) 1.400 H Neut % (Auto) 82.0 H Lymph % (Auto) 6.9 L Roberts % (Auto) 9.6 Eos % (Auto) 0.0 Baso % (Auto) 0.1 Absolute Neuts (auto) 8.3 H Absolute Lymphs (auto) 0.70 L Nucleated RBC % 0 Fibrinogen Sodium Potassium Chloride Carbon Dioxide Anion Gap BUN Creatinine Estim Creat Clear Calc Est GFR (MDRD) Af Amer Est GFR (MDRD) Non-Af BUN/Creatinine Ratio Glucose Lactic Acid Calcium Magnesium Total Bilirubin AST ALT Alkaline Phosphatase Lactate Dehydrogenase Total Creatine Kinase Troponin I C-React Prot Ext Range B-Natriuretic Peptide Total Protein Albumin Globulin Albumin/Globulin Ratio Procalcitonin POC Glucose 178 H Microbiology 07/03/20 23:56 Urine, Clean Catch Streptococcus pneumoniae Antigen (M - Final 07/03/20 23:56 Urine, Clean Catch Legionella Antigen - Final Clinical Impression(s) from Imaging Studies Chest X-Ray 07/03/20 13:15 IMPRESSION: Patchy bilateral pulmonary infiltrates worse in the lower lobes. Electronically Signed: Jose Villalobos, at 13:56 EST , Service support , Chest CTA 07/03/20 14:32 IMPRESSION: Multiple small pulmonary emboli in the upper lobe pulmonary arterial branches. Diffuse bilateral pulmonary infiltrates as described. Electronically Signed: Jose Villalobos, at 15:10 EST , Service support , Current Medications Acetaminophen (Acetaminophen 325 Mg Tablet) 650 mg PO Q4H PRN PRN PRN Reason: Pain Score 1-3 /Temp>100.7 Albuterol Sulfate (Albuterol Sulfate 8 Gm Inhaler (60 Puffs)) 2 puff INHALATION Q4H PRN PRN PRN Reason: Shortness of Breath/Wheezing Apixaban (Apixaban 5 Mg Tablet) 10 mg PO BID [facility]; Taper Stop: 01/06/21 21:59 Last Admin: 07/03/20 21:00 Dose: 10 mg Documented by: Aspirin (Aspirin E.C. 81 Mg Tablet) 81 mg PO DAILY@0800 [facility] Last Admin: 07/04/20 08:03 Dose: 81 mg Documented by: Cholecalciferol (Cholecalciferol (Vit D3) 1,000 Unit (25mcg)) 2,[facility] Last Admin: 07/04/20 08:02 Dose: 2,000 unit Documented by: Cyanocobalamin (Cyanocobalamin 500 Mcg Tablet) [facility] Last Admin: 07/04/20 08:03 Dose: 500 mcg Documented by: Dexamethasone Sodium Phosphate (Dexamethasone 10 Mg/Ml Vial) [facility] Last Admin: 07/04/20 08:03 Dose: 6 mg Documented by: Dextrose (Dextrose 50%-Water 25 Gm/50 Ml Disp.Syrin) 0 gm IV X1 PRN; Protocol PRN Reason: Hypoglycemia Donepezil HCl (Donepezil Hcl 10 Mg Tablet) 10 mg PO QHS [facility] Last Admin: 07/03/20 21:00 Dose: 10 mg Documented by: Folic Acid (Folic Acid 1 Mg Tablet) [facility] Last Admin: 07/04/20 08:02 Dose: 1 mg Documented by: Furosemide (Furosemide 40 Mg Tablet) [facility] Last Admin: 07/04/20 08:03 Dose: 40 mg Documented by: Glucagon (Glucagon 1 Mg/Ml Syringe) 1 mg IM .X1 PRN PRN Reason: Hypoglycemia Guaifenesin (Guaifenesin Dm 10 Ml Udc) 10 ml PO Q6H PRN PRN Reason: CONGESTION Insulin Human Lispro (Insulin Lispro 100 Unit/Ml Insuln.Pen) 0 unit SC [facility]; Protocol Last Admin: 07/04/20 06:21 Dose: 1 u Documented by: Losartan Potassium (Losartan Potassium 25 Mg Tablet) [facility] Last Admin: 07/04/20 08:02 Dose: 25 mg Documented by: Melatonin (Melatonin 3 Mg Tablet) 3 mg PO QHS [facility] Last Admin: 07/03/20 21:00 Dose: 3 mg Documented by: Memantine (Memantine Hydrochloride 5 Mg Tablet) 5 mg PO 0800,2200 [facility] Last Admin: 07/04/20 08:03 Dose: 5 mg Documented by: Metformin HCl (Metformin Hcl 500 Mg Tablet) [address] Last Admin: 07/04/20 08:03 Dose: 500 mg Documented by: Morphine Sulfate (Morphine 2 Mg/Ml Syringe) 1 - 2 mg IV Q4H PRN PRN PRN Reason: Pain Score 4-5 Morphine Sulfate (Morphine 2 Mg/Ml Syringe) 2 - 4 mg IV Q3H PRN PRN PRN Reason: Pain Score 6-10 Ondansetron HCl (Ondansetron 4 Mg/2 Ml Vial) 4 mg IV Q8H PRN PRN PRN Reason: NAUSEA/VOMITING Oxycodone HCl (Oxycodone 5 Mg Tablet) 5 mg PO Q4H PRN PRN PRN Reason: Pain Score 4-5 Potassium Chloride (Potassium Chloride 10 Meq Tablet) [address] Last Admin: 07/04/20 08:02 Dose: 10 meq Documented by: Prochlorperazine Edisylate (Prochlorperazine 10 Mg/2 Ml Vial) 10 mg IV Q6H PRN PRN PRN Reason: Nausea/Vomiting Sertraline HCl (Sertraline Hcl 25 Mg Tablet) 12.[facility] [address] Last Admin: 07/04/20 08:04 Dose: 12.5 mg Documented by: Sodium Chloride (0.9% Saline Lock 10 Ml Syringe) 10 - 40 ml IV UD PRN PRN Reason: SALINE FLUSH Last Admin: 07/04/20 08:03 Dose: 10 ml Documented by: Tamsulosin HCl (Tamsulosin Hcl 0.4 Mg Capsule) 0.8 mg PO QHS [facility] Last Admin: 07/03/20 21:00 Dose: 0.8 mg Documented by: Tizanidine HCl (Tizanidine Hcl 2 Mg Tablet) 2 mg PO 0800,2200 [facility] Last Admin: 07/04/20 08:02 Dose: 2 mg Documented by: Assessment/Plan All Active Problems COVID-19 (Acute) Hypoxia (Acute) Parkinson's disease dementia (Acute) Dehydration (Acute) Encephalopathy acute (Acute) Pulmonary embolism (Acute) Tobacco dependency (Acute) Fever (Acute) Strep throat (Acute) Confusion (Acute) RECOMMENDATIONS: 1. Continue systemic anticoagulation with Eliquis as ordered. 2. Continue Decadron 6 mg daily x10 days. 3. Start remdesivir today. Monitor liver and renal function accordingly. 4. Consider holding Metformin and transitioning to sliding scale coverage while admitted to the hospital. 5. Wean supplemental oxygen to maintain saturations at or above 90%. 6. Attempt to encourage incentive spirometer use and mobilize patient as tolerated. IMPRESSIONS: 1. Acute hypoxemic respiratory failure Multifactorial in etiology with underlying COVID-19 pneumonia and bilateral pulmonary emboli contributing. Plan to continue current supportive measures with supplemental oxygen to maintain saturations at or above 90%. The patient will be continued on Decadron daily and will be started on remdesivir today. Agree with continuing systemic anticoagulation with Eliquis as ordered. Attempt to encourage incentive spirometer use while in bed and mobilize patient as tolerated. 2. Advanced age/deconditioning/baseline dementia/diabetes mellitus/hypertension Complicates care, management, recovery and prognosis. Consider holding Metformin and transitioning patient to sliding scale coverage while admitted to the hospital. Physical therapy to work with the patient. This note was generated with [employer] dictation software. It may contain incorrect words, spelling, and punctuation that were not noted in checking the note before signing. Inpatient E&M: 78993 Init Hosp L3
--- NOTE | 2020-07-04 09:07 | NURSING ---
per Dian at [facility] states pt spouse will stop and get dentures and some belongings from [facility] and bring to [facility]. Dian states [facility] paperwork reports that pt last BM was Jun 26- large nonformed soft bm.
[2020-07-04] MEDS: APIXABAN 5 MG TABLET 10 MG PO ×2 (10:02→22:04)
--- NOTE | 2020-07-04 11:29 | NURSING ---
HIM called [facility]- states per [facility], they do not have any records of pt having a COVID nor any COVID results on said pt
--- NOTE | 2020-07-04 12:26 | CASEMGMT ---
Social Work Pt is from [facility] as a half-way patient. KAVYA spoke with pt significant other Amelie who confirms plan is for pt to return to [facility] at time of discharge. [facility]. Clinicals faxed. JOHNATHON Gaines
[2020-07-04 12:45] LABS: Bedside Glucose 214 mg/dL (70-110)
--- NOTE | 2020-07-04 12:48 | PCM.HP.ID ---
Problem List (1) COVID-19 Status: Acute Reason for Consult: covid Consulted by: Dr. Webster History of Present Illness: The patient is a 75 year old M with dementia, developed muscle aches and fatigue 06/21. Covid (+), started on pred, azithro, hydroxychloroquine. Worsening mental status, cough, fever, hypoxia. Sent to ED, CT showed PEs, admitted on dex and eliquis. Pt unable to provide history or ROS due to mental status. D/w granddaughter. - Medical History Past Medical History (Chronic Problems): Chronic Problems Diabetes (Chronic) Neuropathy (Chronic) Charcot ankle (Chronic) Insomnia (Chronic) Allergies/Adverse Reactions: Allergies No Known Allergies Allergy (Verified 12/01/16 19:19) Home Medications: Ambulatory Orders Medication Instructions Recorded Acetaminophen [Tylenol Extra 500 mg PO BID PRN 07/03/20 Strength] Aspirin E.C. [Ecotrin] 81 mg PO DAILY@0800 07/03/20 Cholecalciferol (Vitamin D3) 2,000 unit PO DAILY 07/03/20 [D3-2000] Cyanocobalamin (Vitamin B-12) 500 mcg PO DAILY 07/03/20 [Vitamin B-12] Donepezil HCl 10 mg PO QHS 07/03/20 Folic Acid 1 mg PO DAILY 07/03/20 Furosemide [Lasix] 40 mg PO DAILY 07/03/20 Guaifenesin/Dextromethorphan 10 ml PO Q6H PRN 07/03/20 [Tussin Dm Liquid] Losartan Potassium [Cozaar] 25 mg PO DAILY 07/03/20 Melatonin 3 mg PO QHS 07/03/20 Memantine HCl 5 mg PO BID 07/03/20 Nitrofurantoin Macrocrystal 25 mg PO QHS 07/03/20 [Macrodantin] Potassium Chloride [Klor-Con M10] 10 meq PO DAILY 07/03/20 Sertraline HCl [Zoloft] 12.5 mg PO DAILY 07/03/20 Tamsulosin HCl [Flomax] 0.8 mg PO QHS 07/03/20 Tizanidine HCl 2 mg PO BID 07/03/20 metFORMIN HCl [Glucophage] 500 mg PO BIDCM 07/03/20 - Social History Tobacco Use: non-smoker Vital Signs Temp Pulse Resp BP Pulse Ox 97.5 F L 64 14 116/64 98 07/04/20 09:55 07/04/20 09:55 07/04/20 09:55 07/04/20 09:55 07/04/20 09:55 Oxygen Flow Rate (L/min) 6 Oxygen Delivery Method Nasal Cannula Weight: 99.5 kg Body Mass Index (BMI) 29.7 Microbiology Past 72 Hours 07/03/20 23:56 Streptococcus pneumoniae Antigen (M - Final Urine, Clean Catch 07/03/20 23:56 Legionella Antigen - Final Urine, Clean Catch Laboratory Tests Past 24 Hrs 07/03/20 07/03/20 07/03/20 13:25 13:25 13:25 WBC 9.8 RBC 3.86 L Hgb 11.1 L Hct 35.2 L MCV 91.2 MCH 28.8 MCHC 31.5 L RDW Std Deviation 43.4 RDW Coeff of Srinivasa 13.1 Plt Count 403 MPV 9.4 Immature Gran % (Auto) 1.000 H Neut % (Auto) 78.0 H Lymph % (Auto) 8.8 L [place] % (Auto) 11.8 H Eos % (Auto) 0.3 Baso % (Auto) 0.1 Absolute Neuts (auto) 7.6 Absolute Lymphs (auto) 0.86 Nucleated RBC % 0 Fibrinogen 616 H Sodium 138 Potassium 3.7 Chloride 100 Carbon Dioxide 34.0 H Anion Gap 4 L BUN 30 H Creatinine 0.98 Estim Creat Clear Calc 72.59 Est GFR (MDRD) Af Amer 96 Est GFR (MDRD) Non-Af 79 BUN/Creatinine Ratio 30.5 H Glucose 191 H Lactic Acid Calcium 9.1 Magnesium Total Bilirubin 0.60 AST 28 ALT 38 Alkaline Phosphatase 80 Lactate Dehydrogenase 271 H Total Creatine Kinase 61 Troponin I 0.022 C-React Prot Ext Range 144.00 H B-Natriuretic Peptide Total Protein 7.3 Albumin 2.6 L Globulin 4.7 H Albumin/Globulin Ratio 0.6 L Procalcitonin 07/03/20 07/03/20 07/03/20 13:25 13:25 13:25 WBC RBC Hgb Hct MCV MCH MCHC RDW Std Deviation RDW Coeff of Srinivasa Plt Count MPV Immature Gran % (Auto) Neut % (Auto) Lymph % (Auto) [place] % (Auto) Eos % (Auto) Baso % (Auto) Absolute Neuts (auto) Absolute Lymphs (auto) Nucleated RBC % Fibrinogen Sodium Potassium Chloride Carbon Dioxide Anion Gap BUN Creatinine Estim Creat Clear Calc Est GFR (MDRD) Af Amer Est GFR (MDRD) Non-Af BUN/Creatinine Ratio Glucose Lactic Acid 1.8 Calcium Magnesium Total Bilirubin AST ALT Alkaline Phosphatase Lactate Dehydrogenase Total Creatine Kinase Troponin I C-React Prot Ext Range B-Natriuretic Peptide 72.5 Total Protein Albumin Globulin Albumin/Globulin Ratio Procalcitonin 0.07 07/03/20 07/03/20 07/03/20 16:10 17:45 17:45 WBC RBC Hgb Hct MCV MCH MCHC RDW Std Deviation RDW Coeff of Srinivasa Plt Count MPV Immature Gran % (Auto) Neut % (Auto) Lymph % (Auto) [place] % (Auto) Eos % (Auto) Baso % (Auto) Absolute Neuts (auto) Absolute Lymphs (auto) Nucleated RBC % Fibrinogen Sodium Potassium Chloride Carbon Dioxide Anion Gap BUN Creatinine Estim Creat Clear Calc Est GFR (MDRD) Af Amer Est GFR (MDRD) Non-Af BUN/Creatinine Ratio Glucose Lactic Acid 1.4 Calcium Magnesium Total Bilirubin AST ALT Alkaline Phosphatase Lactate Dehydrogenase Total Creatine Kinase Cancelled Troponin I C-React Prot Ext Range B-Natriuretic Peptide Cancelled Total Protein Albumin Globulin Albumin/Globulin Ratio Procalcitonin 07/03/20 07/04/20 07/04/20 17:45 06:15 06:15 WBC 10.1 RBC 3.70 L Hgb 10.4 L Hct 33.8 L MCV 91.4 MCH 28.1 MCHC 30.8 L RDW Std Deviation 42.5 RDW Coeff of Srinivasa 12.8 Plt Count 401 MPV 9.6 Immature Gran % (Auto) 1.400 H Neut % (Auto) 82.0 H Lymph % (Auto) 6.9 L [place] % (Auto) 9.6 Eos % (Auto) 0.0 Baso % (Auto) 0.1 Absolute Neuts (auto) 8.3 H Absolute Lymphs (auto) 0.70 L Nucleated RBC % 0 Fibrinogen Sodium 138 Potassium 4.3 Chloride 103 Carbon Dioxide 33.0 H Anion Gap 2 L BUN 26 H Creatinine 0.81 Estim Creat Clear Calc 87.82 Est GFR (MDRD) Af Amer 119 Est GFR (MDRD) Non-Af 98 BUN/Creatinine Ratio 31.9 H Glucose 184 H Lactic Acid Calcium 9.0 Magnesium 2.0 Total Bilirubin 0.70 AST 24 ALT 36 Alkaline Phosphatase 73 Lactate Dehydrogenase Total Creatine Kinase Troponin I C-React Prot Ext Range B-Natriuretic Peptide Total Protein 7.1 Albumin 2.4 L Globulin 4.7 H Albumin/Globulin Ratio 0.5 L Procalcitonin Cancelled - Other Studies Radiology: [] reviewed Other Studies: [] Route of nutrition/ use of supplements: [] Nutritional Intake: [] IV Site: [] Claudio Catheter: [] - Physical Exam General: No apparent distress, Confused HEENT: Atraumatic, PERRLA, EOMI Neck: Supple, No Nodes Lungs: Diminished Cardiovascular: Tachycardic Abdomen: Soft, Non Tender, Non-Distended Extremities: No edema Skin: No rashes IV Site: Peripheral, without redness Musculoskeletal: No Tenderness to Palpation of Joints or Extremities Neurological: Cranial nerves II-XII grossly intact - Assessment/Plan Antibiotics: [] Assessment/Plan: [] Active and Suspected Problems COVID-19 (Acute) Hypoxia (Acute) Parkinson's disease dementia (Acute) Dehydration (Acute) Encephalopathy acute (Acute) Pulmonary embolism (Acute) covid with PE, hypoxia - on dex, eliquis. Will start remdesivir. Will follow, thank you
[2020-07-04 18:05] LABS: Bedside Glucose 286 mg/dL (70-110)
[2020-07-04] MEDS: Donepezil HCl 10 MG Tablet PO (22:04)
[2020-07-04] MEDS: Tamsulosin HCl 0.4 MG Capsule 0.8 MG PO (22:04)
[2020-07-04 23:35] LABS: Bedside Glucose 197 mg/dL (70-110)
[2020-07-05] VITALS (13 sets, daily range): BP systolic 109–141; BP diastolic 61–79; PULSE 59–88; RESP 18–20; TEMP 36.1–36.4; O2SAT 91–99
[2020-07-05 06:55] LABS: Bedside Glucose 124 mg/dL (70-110)
[2020-07-05 07:28] LABS: Absolute Lymphocyte Count 1.34 X10^3/uL (0.83-4.51); Absolute Neutrophil Count 8.7 X10^3/uL (2.0-7.7); Basophil# 0.02 X10^3/uL; Basophil% 0.2 % (0-1); Eosinophil# 0.08 X10^3/uL; Eosinophils% 0.7 % (0-5); Hematocrit 33.2 % (40-54); Hemoglobin 10.5 g/dL (13.0-16.5); Lymphocyte # 1.34 X10^3/ul (4.0); Lymphocyte % 11.5 % (19-41); Mean Corp Hgb Conc 31.6 g/dL (32-36); Mean Corpuscular Hgb 28.8 pg (27.0-32.0); Mean Corpuscular Volume 91.2 fL (80-94); Mean Platelet Vol. 9.5 fl (6.2-12.0); Monocyte# 1.34 X10^3/uL; Monocyte% 11.5 % (0-10); NRBC Flagged by Analyzer 0 % (0-5); Neutrophil # 8.74 X10^3/uL (2.7-7.7); Neutrophil % 74.8 % (47-70); Platelet Count 442 K/mm3 (150-450); RBC Distribution Width CV 12.9 % (11.6-14.6); RBC Distribution Width SD 43.1 fl (35.1-43.9); Red Blood Count 3.64 M/mm3 (4.6-6.2); White Blood Count 11.7 K/mm3 (4.4-11.0)
[2020-07-05 07:54] LABS: ALB/GLOB Ratio 0.7 RATIO (0.9-2.4); AST(SGOT) 27 U/L (15-37); Alanine Aminotransfer ALT/SGPT 40 U/L (16-61); Albumin, Serum 2.5 g/dL (3.2-5.0); Alkaline Phosphatase 70 U/L (45-117); Anion Gap 7 (5-15); BUN 28 mg/dL (7-18); BUN/Creat Ratio 33.5 RATIO (10-20); Calcium,Total 8.7 mg/dL (8.5-10.1); Chloride 101 mmol/L (98-107); Creatinine, Serum 0.84 mg/dL (0.70-1.30); EST Glomerular Filtration Rate 96 mL/min (>60); Est Glom Filt Rate - Afr Amer 116 mL/min (>60); Estimated Creatinine Clearance 84.68 ml/min; Globulin 3.8 g/dL (2.2-4.2); Glucose 114 mg/dL (74-106); Potassium 3.9 mmol/L (3.5-5.1); Protein, Total 6.3 g/dL (6.4-8.2); Sodium Level 138 mmol/L (136-145)
[2020-07-05] MEDS: APIXABAN 5 MG TABLET 10 MG PO ×2 (09:16→20:46)
[2020-07-05] MEDS: Losartan Potassium 25 MG Tablet PO (09:16)
[2020-07-05] MEDS: Cyanocobalamin 500 MCG Tablet PO (09:17)
[2020-07-05] MEDS: Furosemide 40 MG Tablet PO (09:17)
[2020-07-05] MEDS: SERTRALINE HCL 25 MG TABLET 12.5 MG PO (09:18)
[2020-07-05] MEDS: Folic Acid 1 MG Tablet PO (09:19)
[2020-07-05] MEDS: tiZANidine HCl 2 MG Tablet PO ×2 (09:20→20:46)
[2020-07-05] MEDS: Aspirin E.C. 81 MG Tablet PO (09:20)
[2020-07-05] MEDS: Memantine Hydrochloride 5 MG Tablet PO ×2 (09:20→20:46)
[2020-07-05] MEDS: dexAMETHasone 10 MG/ML Vial 6 MG IV (09:21)
[2020-07-05] MEDS: 0.9% Saline Lock 10 ML Syringe IV (09:22)
--- NOTE | 2020-07-05 09:33 | NURSING ---
per report, we are to crush pills in applesauce. Pt took a couple bites but then started spitting pills out. Unsure of what/how much he actually swallowed. Stated to this nurse get out of here with this. I didn't come here to be treated like this.
--- NOTE | 2020-07-05 11:00 | PN_ITS ---
Patient Problems: Active and Suspected Problems COVID-19 (Acute) Hypoxia (Acute) Parkinson's disease dementia (Acute) Dehydration (Acute) Encephalopathy acute (Acute) Pulmonary embolism (Acute) Subjective: The patient was seen and examined at the bedside this morning. Events from the last 24 hours have been reviewed. The patient is currently afebrile, hemodynamically stable and maintaining appropriate oxygen saturations on 5 L/min via nasal cannula. The patient remains systemically anticoagulated on Eliquis. In addition, he remains on Decadron and remdesivir. Liver and renal function are stable. Objective: The patient's most recent lab work, culture data and imaging studies have all been personally reviewed. Strep and urine Legionella antigens were negative. Blood cultures are pending. - Physical Exam Vitals/I&O's: Vital Signs Temp Pulse Resp BP Pulse Ox 97.6 F L 75 18 118/66 93 07/05/20 08:31 07/05/20 08:31 07/05/20 08:31 07/05/20 08:31 07/05/20 08:31 Oxygen Flow Rate (L/min) 5 Oxygen Delivery Method Nasal Cannula Weight: 219 lb 5.759 oz Body Mass Index (BMI) 29.7 Intake and Output for Last 24 Hours 07/03/20 07/04/20 07/05/20 23:59 23:59 23:59 Intake Total 1305.00 / 1305.00 1234.33 / 1484.33 550 / 550 Output Total 275 / 275 Balance 1305.00 / 1305.00 959.33 / 1209.33 550 / 550 General: Alert, Confused, Disoriented HEENT: Atraumatic, Normocephalic Oral: Moist Mucosa Neck: Supple, No Nodes, Trachea Midline Lungs: No rhonchi, No wheeze, No rales, Diminished Cardiovascular: Regular rate, Regular Rhythm Abdomen: Bowel Sounds Present, Soft, Non Tender Extremities: No clubbing, No cyanosis, No edema Skin: - - No significant change from previous Musculoskeletal: No Tenderness to Palpation of Joints or Extremities Neurological: Neuro grossly intact Psych/Mental Status: Flat Affect Labs (Last 48 Hours) 07/03/20 07/03/20 07/03/20 13:25 13:25 13:25 WBC 9.8 RBC 3.86 L Hgb 11.1 L Hct 35.2 L MCV 91.2 MCH 28.8 MCHC 31.5 L RDW Std Deviation 43.4 RDW Coeff of Srinivasa 13.1 Plt Count 403 MPV 9.4 Immature Gran % (Auto) 1.000 H Neut % (Auto) 78.0 H Lymph % (Auto) 8.8 L [place] % (Auto) 11.8 H Eos % (Auto) 0.3 Baso % (Auto) 0.1 Absolute Neuts (auto) 7.6 Absolute Lymphs (auto) 0.86 Nucleated RBC % 0 Fibrinogen 616 H Sodium 138 Potassium 3.7 Chloride 100 Carbon Dioxide 34.0 H Anion Gap 4 L BUN 30 H Creatinine 0.98 Estim Creat Clear Calc 72.59 Est GFR (MDRD) Af Amer 96 Est GFR (MDRD) Non-Af 79 BUN/Creatinine Ratio 30.5 H Glucose 191 H Lactic Acid Calcium 9.1 Magnesium Total Bilirubin 0.60 AST 28 ALT 38 Alkaline Phosphatase 80 Lactate Dehydrogenase 271 H Total Creatine Kinase 61 Troponin I 0.022 C-React Prot Ext Range 144.00 H B-Natriuretic Peptide Total Protein 7.3 Albumin 2.6 L Globulin 4.7 H Albumin/Globulin Ratio 0.6 L Procalcitonin POC Glucose 07/03/20 07/03/20 07/03/20 13:25 13:25 13:25 WBC RBC Hgb Hct MCV MCH MCHC RDW Std Deviation RDW Coeff of Srinivasa Plt Count MPV Immature Gran % (Auto) Neut % (Auto) Lymph % (Auto) [place] % (Auto) Eos % (Auto) Baso % (Auto) Absolute Neuts (auto) Absolute Lymphs (auto) Nucleated RBC % Fibrinogen Sodium Potassium Chloride Carbon Dioxide Anion Gap BUN Creatinine Estim Creat Clear Calc Est GFR (MDRD) Af Amer Est GFR (MDRD) Non-Af BUN/Creatinine Ratio Glucose Lactic Acid 1.8 Calcium Magnesium Total Bilirubin AST ALT Alkaline Phosphatase Lactate Dehydrogenase Total Creatine Kinase Troponin I C-React Prot Ext Range B-Natriuretic Peptide 72.5 Total Protein Albumin Globulin Albumin/Globulin Ratio Procalcitonin 0.07 POC Glucose 07/03/20 07/03/20 07/03/20 16:10 17:45 17:45 WBC RBC Hgb Hct MCV MCH MCHC RDW Std Deviation RDW Coeff of Srinivasa Plt Count MPV Immature Gran % (Auto) Neut % (Auto) Lymph % (Auto) [place] % (Auto) Eos % (Auto) Baso % (Auto) Absolute Neuts (auto) Absolute Lymphs (auto) Nucleated RBC % Fibrinogen Sodium Potassium Chloride Carbon Dioxide Anion Gap BUN Creatinine Estim Creat Clear Calc Est GFR (MDRD) Af Amer Est GFR (MDRD) Non-Af BUN/Creatinine Ratio Glucose Lactic Acid 1.4 Calcium Magnesium Total Bilirubin AST ALT Alkaline Phosphatase Lactate Dehydrogenase Total Creatine Kinase Cancelled Troponin I C-React Prot Ext Range B-Natriuretic Peptide Cancelled Total Protein Albumin Globulin Albumin/Globulin Ratio Procalcitonin POC Glucose 07/03/20 07/03/20 07/04/20 17:45 20:58 06:15 WBC RBC Hgb Hct MCV MCH MCHC RDW Std Deviation RDW Coeff of Srinivasa Plt Count MPV Immature Gran % (Auto) Neut % (Auto) Lymph % (Auto) [place] % (Auto) Eos % (Auto) Baso % (Auto) Absolute Neuts (auto) Absolute Lymphs (auto) Nucleated RBC % Fibrinogen Sodium 138 Potassium 4.3 Chloride 103 Carbon Dioxide 33.0 H Anion Gap 2 L BUN 26 H Creatinine 0.81 Estim Creat Clear Calc 87.82 Est GFR (MDRD) Af Amer 119 Est GFR (MDRD) Non-Af 98 BUN/Creatinine Ratio 31.9 H Glucose 184 H Lactic Acid Calcium 9.0 Magnesium 2.0 Total Bilirubin 0.70 AST 24 ALT 36 Alkaline Phosphatase 73 Lactate Dehydrogenase Total Creatine Kinase Troponin I C-React Prot Ext Range B-Natriuretic Peptide Total Protein 7.1 Albumin 2.4 L Globulin 4.7 H Albumin/Globulin Ratio 0.5 L Procalcitonin Cancelled POC Glucose 226 H 07/04/20 07/04/20 07/04/20 06:15 06:19 11:55 WBC 10.1 RBC 3.70 L Hgb 10.4 L Hct 33.8 L MCV 91.4 MCH 28.1 MCHC 30.8 L RDW Std Deviation 42.5 RDW Coeff of Srinivasa 12.8 Plt Count 401 MPV 9.6 Immature Gran % (Auto) 1.400 H Neut % (Auto) 82.0 H Lymph % (Auto) 6.9 L [place] % (Auto) 9.6 Eos % (Auto) 0.0 Baso % (Auto) 0.1 Absolute Neuts (auto) 8.3 H Absolute Lymphs (auto) 0.70 L Nucleated RBC % 0 Fibrinogen Sodium Potassium Chloride Carbon Dioxide Anion Gap BUN Creatinine Estim Creat Clear Calc Est GFR (MDRD) Af Amer Est GFR (MDRD) Non-Af BUN/Creatinine Ratio Glucose Lactic Acid Calcium Magnesium Total Bilirubin AST ALT Alkaline Phosphatase Lactate Dehydrogenase Total Creatine Kinase Troponin I C-React Prot Ext Range B-Natriuretic Peptide Total Protein Albumin Globulin Albumin/Globulin Ratio Procalcitonin POC Glucose 178 H 214 H 07/04/20 07/04/20 07/05/20 16:56 22:09 06:14 WBC 11.7 H RBC 3.64 L Hgb 10.5 L Hct 33.2 L MCV 91.2 MCH 28.8 MCHC 31.6 L RDW Std Deviation 43.1 RDW Coeff of Srinivasa 12.9 Plt Count 442 MPV 9.5 Immature Gran % (Auto) 1.300 H Neut % (Auto) 74.8 H Lymph % (Auto) 11.5 L [place] % (Auto) 11.5 H Eos % (Auto) 0.7 Baso % (Auto) 0.2 Absolute Neuts (auto) 8.7 H Absolute Lymphs (auto) 1.34 Nucleated RBC % 0 Fibrinogen Sodium Potassium Chloride Carbon Dioxide Anion Gap BUN Creatinine Estim Creat Clear Calc Est GFR (MDRD) Af Amer Est GFR (MDRD) Non-Af BUN/Creatinine Ratio Glucose Lactic Acid Calcium Magnesium Total Bilirubin AST ALT Alkaline Phosphatase Lactate Dehydrogenase Total Creatine Kinase Troponin I C-React Prot Ext Range B-Natriuretic Peptide Total Protein Albumin Globulin Albumin/Globulin Ratio Procalcitonin POC Glucose 286 H 197 H 07/05/20 07/05/20 06:14 06:14 WBC RBC Hgb Hct MCV MCH MCHC RDW Std Deviation RDW Coeff of Srinivasa Plt Count MPV Immature Gran % (Auto) Neut % (Auto) Lymph % (Auto) [place] % (Auto) Eos % (Auto) Baso % (Auto) Absolute Neuts (auto) Absolute Lymphs (auto) Nucleated RBC % Fibrinogen Sodium 138 Potassium 3.9 Chloride 101 Carbon Dioxide 30.0 Anion Gap 7 BUN 28 H Creatinine 0.84 Estim Creat Clear Calc 84.68 Est GFR (MDRD) Af Amer 116 Est GFR (MDRD) Non-Af 96 BUN/Creatinine Ratio 33.5 H Glucose 114 H Lactic Acid Calcium 8.7 Magnesium Total Bilirubin 0.50 AST 27 ALT 40 Alkaline Phosphatase 70 Lactate Dehydrogenase Total Creatine Kinase Troponin I C-React Prot Ext Range B-Natriuretic Peptide Total Protein 6.3 L Albumin 2.5 L Globulin 3.8 Albumin/Globulin Ratio 0.7 L Procalcitonin POC Glucose 124 H Microbiology 07/03/20 23:56 Urine, Clean Catch Streptococcus pneumoniae Antigen (M - Final 07/03/20 23:56 Urine, Clean Catch Legionella Antigen - Final Clinical Impression(s) from Imaging Studies Chest X-Ray 07/03/20 13:15 IMPRESSION: Patchy bilateral pulmonary infiltrates worse in the lower lobes. Electronically Signed: Jose Villalobos, at 13:56 EST , Service support , Chest CTA 07/03/20 14:32 IMPRESSION: Multiple small pulmonary emboli in the upper lobe pulmonary arterial branches. Diffuse bilateral pulmonary infiltrates as described. Electronically Signed: Jose Villalobos, at 15:10 EST , Service support , Current Medications Acetaminophen (Acetaminophen 325 Mg Tablet) 650 mg PO Q4H PRN PRN PRN Reason: Pain Score 1-3 /Temp>100.7 Albuterol Sulfate (Albuterol Sulfate 8 Gm Inhaler (60 Puffs)) 2 puff INHALATION Q4H PRN PRN PRN Reason: Shortness of Breath/Wheezing Apixaban (Apixaban 5 Mg Tablet) 10 mg PO BID@0800,2200 [facility]; Taper Stop: 01/06/21 21:59 Last Admin: 07/05/20 09:16 Dose: 10 mg Documented by: Aspirin (Aspirin E.C. 81 Mg Tablet) 81 mg PO DAILY@0800 [facility] Last Admin: 07/05/20 09:20 Dose: 81 mg Documented by: Cholecalciferol (Cholecalciferol (Vit D3) 1,000 Unit (25mcg)) [facility] Admin: 07/05/20 09:18 Dose: 2,000 unit Documented by: Cyanocobalamin (Cyanocobalamin 500 Mcg Tablet) [facility] Last Admin: 07/05/20 09:17 Dose: 500 mcg Documented by: Dexamethasone Sodium Phosphate (Dexamethasone 10 Mg/Ml Vial) [facility] Last Admin: 07/05/20 09:21 Dose: 6 mg Documented by: Dextrose (Dextrose 50%-Water 25 Gm/50 Ml Disp.Syrin) 0 gm IV X1 PRN; Protocol PRN Reason: Hypoglycemia Donepezil HCl (Donepezil Hcl 10 Mg Tablet) 10 mg PO QHS [facility] Last Admin: 07/04/20 22:04 Dose: 10 mg Documented by: Folic Acid (Folic Acid 1 Mg Tablet) [facility] Last Admin: 07/05/20 09:19 Dose: 1 mg Documented by: Furosemide (Furosemide 40 Mg Tablet) [facility] Last Admin: 07/05/20 09:17 Dose: 40 mg Documented by: Glucagon (Glucagon 1 Mg/Ml Syringe) 1 mg IM .X1 PRN PRN Reason: Hypoglycemia Guaifenesin (Guaifenesin Dm 10 Ml Udc) 10 ml PO Q6H PRN PRN Reason: CONGESTION Remdesivir 100 mg/ Sodium (Chloride) 250 mls @ 125 mls/hr IV DAILY@0800 [facility]; Protocol Stop: 07/08/20 09:59 Last Admin: 07/05/20 09:16 Dose: 125 mls/hr Documented by: Sodium Chloride () 250 mls @ 15 mls/hr IV .[id number] PRN PRN Reason: Saline Flush Last Infusion: 07/05/20 09:36 Dose: Infused Documented by: Sodium Chloride () 250 mls @ 15 mls/hr IV .[id number] PRN PRN Reason: Additional IVPB Infusion Insulin Human Lispro (Insulin Lispro 100 Unit/Ml Insuln.Pen) [facility]; Protocol Last Admin: 07/05/20 06:28 Dose: Not Given Documented by: Losartan Potassium (Losartan Potassium 25 Mg Tablet) [facility] Last Admin: 07/05/20 09:16 Dose: 25 mg Documented by: Memantine (Memantine Hydrochloride 5 Mg Tablet) 5 mg PO 0800,2200 [facility] Last Admin: 07/05/20 09:20 Dose: 5 mg Documented by: Ondansetron HCl (Ondansetron 4 Mg/2 Ml Vial) 4 mg IV Q8H PRN PRN PRN Reason: NAUSEA/VOMITING Potassium Chloride (Potassium Chloride 10 Meq Tablet) [facility] Last Admin: 07/05/20 09:17 Dose: 10 meq Documented by: Prochlorperazine Edisylate (Prochlorperazine 10 Mg/2 Ml Vial) 10 mg IV Q6H PRN PRN PRN Reason: Nausea/Vomiting Sertraline HCl (Sertraline Hcl 25 Mg Tablet) 12.[facility] Last Admin: 07/05/20 09:18 Dose: 12.5 mg Documented by: Sodium Chloride (0.9% Saline Lock 10 Ml Syringe) 10 - 40 ml IV UD PRN PRN Reason: SALINE FLUSH Last Admin: 07/05/20 09:22 Dose: 10 ml Documented by: Tamsulosin HCl (Tamsulosin Hcl 0.4 Mg Capsule) 0.8 mg PO QHS [facility] Last Admin: 07/04/20 22:04 Dose: 0.8 mg Documented by: Tizanidine HCl (Tizanidine Hcl 2 Mg Tablet) 2 mg PO 0800,2200 [facility] Last Admin: 07/05/20 09:20 Dose: 2 mg Documented by: Medical Necessity - Tobacco Use Smoking Status: Never smoker Assessment/Plan All Active Problems COVID-19 (Acute) Hypoxia (Acute) Parkinson's disease dementia (Acute) Dehydration (Acute) Encephalopathy acute (Acute) Pulmonary embolism (Acute) Tobacco dependency (Acute) Fever (Acute) Strep throat (Acute) Confusion (Acute) RECOMMENDATIONS: 1. Continue systemic anticoagulation with Eliquis as ordered. 2. Continue Decadron 6 mg daily x10 days. 3. Continue remdesivir. Monitor liver and renal function accordingly. 4. Wean supplemental oxygen to maintain saturations at or above 90%. 5. Attempt to encourage incentive spirometer use and mobilize patient as tolerated. IMPRESSIONS: 1. Acute hypoxemic respiratory failure Multifactorial in etiology with underlying COVID-19 pneumonia and bilateral pulmonary emboli contributing. Plan to continue current supportive measures with supplemental oxygen to maintain saturations at or above 90%. The patient will be continued on Decadron and remdesivir. Continue systemic anticoagulation with Eliquis as ordered. Attempt to encourage incentive spirometer use while in bed and mobilize patient as tolerated. 2. Advanced age/deconditioning/baseline dementia/diabetes mellitus/hypertension Complicates care, management, recovery and prognosis. Physical therapy to work with the patient. This note was generated with [employer] dictation software. It may contain incorrect words, spelling, and punctuation that were not noted in checking the note before signing. Inpatient E&M: 18059 Subs Hosp L2
--- NOTE | 2020-07-05 11:04 | CASEMGMT ---
Social Work SW spoke with Arlene at [facility] and update given. Pt can return to [facility] when medically ready. Plan: [facility], when medically ready JOHNATHON Gaines
[2020-07-05] MEDS: Insulin Lispro 100 UNIT/ML INSULN.PEN SC ×3 (12:14→21:36)
[2020-07-05 12:25] LABS: Bedside Glucose 208 mg/dL (70-110)
--- NOTE | 2020-07-05 13:16 | PCM.PN.HOSP ---
Patient Problems: Active and Suspected Problems COVID-19 (Acute) Hypoxia (Acute) Parkinson's disease dementia (Acute) Dehydration (Acute) Encephalopathy acute (Acute) Pulmonary embolism (Acute) Subjective: Doing well, no issues overnight. Still maintaining oxygen saturations on 5 L nasal cannula. Vitals/I&O's: Vital Signs Temp Pulse Resp BP Pulse Ox 97.6 F L 88 18 118/66 94 07/05/20 08:31 07/05/20 12:51 07/05/20 08:31 07/05/20 08:31 07/05/20 12:39 Oxygen Flow Rate (L/min) 5 Oxygen Delivery Method Nasal Cannula Weight: 219 lb 5.759 oz Body Mass Index (BMI) 29.7 Intake and Output for Last 24 Hours 07/03/20 07/04/20 07/05/20 23:59 23:59 23:59 Intake Total 1305.00 / 1305.00 1234.33 / 1484.33 800 / 800 Output Total 275 / 275 Balance 1305.00 / 1305.00 959.33 / 1209.33 800 / 800 General: Alert, Confused HEENT: Atraumatic, PERRLA, EOMI, Normocephalic Oral: Moist Mucosa Neck: Supple, No JVD Lungs: Normal air movement, No rhonchi, No wheeze, No rales, Diminished Cardiovascular: Regular rate, Regular Rhythm, Normal S1, Normal S2, No murmurs Abdomen: Soft, Non Tender, Non-Distended, No Hepato-splenomegaly Extremities: No edema, Capillary Refill Less than 3 Seconds Skin: No rashes, No breakdown Neurological: Neuro grossly intact, Sensory exam intact to light touch and pain Psych/Mental Status: Flat Affect Microbiology Past 72 Hours 07/03/20 23:56 Urine, Clean Catch Streptococcus pneumoniae Antigen (M - Final 07/03/20 23:56 Urine, Clean Catch Legionella Antigen - Final Laboratory Results 07/04/20 16:56: POC Glucose 286 H 07/04/20 22:09: POC Glucose 197 H 07/05/20 06:14: WBC 11.7 H, RBC 3.64 L, Hgb 10.5 L, Hct 33.2 L, MCV 91.2, MCH 28.8, MCHC 31.6 L, RDW Std Deviation 43.1, RDW Coeff of Srinivasa 12.9, Plt Count 442, MPV 9.5, Immature Gran % (Auto) 1.300 H, Neut % (Auto) 74.8 H, Lymph % (Auto) 11.5 L, [place] % (Auto) 11.5 H, Eos % (Auto) 0.7, Baso % (Auto) 0.2, Absolute Neuts (auto) 8.7 H, Absolute Lymphs (auto) 1.34, Nucleated RBC % 0 07/05/20 06:14: Sodium 138, Potassium 3.9, Chloride 101, Carbon Dioxide 30.0, Anion Gap 7, BUN 28 H, Creatinine 0.84, Estim Creat Clear Calc 84.68, Est GFR (MDRD) Af Amer 116, Est GFR (MDRD) Non-Af 96, BUN/Creatinine Ratio 33.5 H, Glucose 114 H, Calcium 8.7, Total Bilirubin 0.50, AST 27, ALT 40, Alkaline Phosphatase 70, Total Protein 6.3 L, Albumin 2.5 L, Globulin 3.8, Albumin/Globulin Ratio 0.7 L 07/05/20 06:14: POC Glucose 124 H 07/05/20 12:12: POC Glucose 208 H Current Medications Acetaminophen (Acetaminophen 325 Mg Tablet) 650 mg PO Q4H PRN PRN PRN Reason: Pain Score 1-3 /Temp>100.7 Albuterol Sulfate (Albuterol Sulfate 8 Gm Inhaler (60 Puffs)) 2 puff INHALATION Q4H PRN PRN PRN Reason: Shortness of Breath/Wheezing Apixaban (Apixaban 5 Mg Tablet) 10 mg PO BID@0800,2200 [facility]; Taper Stop: 01/06/21 21:59 Last Admin: 07/05/20 09:16 Dose: 10 mg Documented by: Aspirin (Aspirin E.C. 81 Mg Tablet) 81 mg PO DAILY@0800 [facility] Last Admin: 07/05/20 09:20 Dose: 81 mg Documented by: Cholecalciferol (Cholecalciferol (Vit D3) 1,000 Unit (25mcg)) [facility] Last Admin: 07/05/20 09:18 Dose: 2,000 unit Documented by: Cyanocobalamin (Cyanocobalamin 500 Mcg Tablet) 500 [facility] Last Admin: 07/05/20 09:17 Dose: 500 mcg Documented by: Dexamethasone Sodium Phosphate (Dexamethasone 10 Mg/Ml Vial) 6 [facility] Last Admin: 07/05/20 09:21 Dose: 6 mg Documented by: Dextrose (Dextrose 50%-Water 25 Gm/50 Ml Disp.Syrin) 0 gm IV X1 PRN; Protocol PRN Reason: Hypoglycemia Donepezil HCl (Donepezil Hcl 10 Mg Tablet) 10 mg PO QHS [facility] Last Admin: 07/04/20 22:04 Dose: 10 mg Documented by: Folic Acid (Folic Acid 1 Mg Tablet) [facility] Last Admin: 07/05/20 09:19 Dose: 1 mg Documented by: Furosemide (Furosemide 40 Mg Tablet) 40 [facility] Last Admin: 07/05/20 09:17 Dose: 40 mg Documented by: Glucagon (Glucagon 1 Mg/Ml Syringe) 1 mg IM .X1 PRN PRN Reason: Hypoglycemia Guaifenesin (Guaifenesin Dm 10 Ml Udc) 10 ml PO Q6H PRN PRN Reason: CONGESTION Remdesivir 100 mg/ Sodium (Chloride) 250 mls @ 125 mls/hr IV DAILY@0800 [facility]; Protocol Stop: 07/08/20 09:59 Last Infusion: 07/05/20 12:01 Dose: Infused Documented by: Sodium Chloride () 250 mls @ 15 mls/hr IV .[id number] PRN PRN Reason: Saline Flush Last Infusion: 07/05/20 09:36 Dose: Infused Documented by: Sodium Chloride () 250 mls @ 15 mls/hr IV .[id number] PRN PRN Reason: Additional IVPB Infusion Insulin Human Lispro (Insulin Lispro 100 Unit/Ml Insuln.Pen) 0 unit SC [facility]; Protocol Last Admin: 07/05/20 12:14 Dose: 4 u Documented by: Losartan Potassium (Losartan Potassium 25 Mg Tablet) [facility] Last Admin: 07/05/20 09:16 Dose: 25 mg Documented by: Memantine (Memantine Hydrochloride 5 Mg Tablet) 5 mg PO 0800,2200 [facility] Last Admin: 07/05/20 09:20 Dose: 5 mg Documented by: Ondansetron HCl (Ondansetron 4 Mg/2 Ml Vial) 4 mg IV Q8H PRN PRN PRN Reason: NAUSEA/VOMITING Potassium Chloride (Potassium Chloride 10 Meq Tablet) 10 meq [facility] Last Admin: 07/05/20 09:17 Dose: 10 meq Documented by: Prochlorperazine Edisylate (Prochlorperazine 10 Mg/2 Ml Vial) 10 mg IV Q6H PRN PRN PRN Reason: Nausea/Vomiting Sertraline HCl (Sertraline Hcl 25 Mg Tablet) 12.5 mg [facility] Last Admin: 07/05/20 09:18 Dose: 12.5 mg Documented by: Sodium Chloride (0.9% Saline Lock 10 Ml Syringe) 10 - 40 ml IV UD PRN PRN Reason: SALINE FLUSH Last Admin: 07/05/20 09:22 Dose: 10 ml Documented by: Tamsulosin HCl (Tamsulosin Hcl 0.4 Mg Capsule) 0.8 mg PO QHS [facility] Last Admin: 07/04/20 22:04 Dose: 0.8 mg Documented by: Tizanidine HCl (Tizanidine Hcl 2 Mg Tablet) 2 mg PO 0800,2200 [facility] Last Admin: 07/05/20 09:20 Dose: 2 mg Documented by: STROKE Vital Signs/Narrative: Vital Signs Pulse Pulse Ox 07/05/20 12:51 88 07/05/20 12:39 94 Medical Necessity - Tobacco Use Smoking Status: Never smoker Assessment/Plan All Active Problems COVID-19 (Acute) Hypoxia (Acute) Parkinson's disease dementia (Acute) Dehydration (Acute) Encephalopathy acute (Acute) Pulmonary embolism (Acute) Tobacco dependency (Acute) Fever (Acute) Strep throat (Acute) Confusion (Acute) 1. Acute hypoxic respiratory failure secondary to COVID-19 pneumonia and PE/debility -Continue with Decadron and remdesivir, with maintaining oxygen sats on 5 L nasal cannula -Anticoagulated with Eliquis -PT/OT for evaluation of possible placement 2. HTN/HLD -Blood pressure is stable -Continue with Lasix, his blood pressure is actually controlled just with the Lasix therefore can continue to hold losartan 3. DM 2 -We will hold all oral hypoglycemics, and transition to sliding scale insulin -Accu-Cheks AC at bedtime -Would not restart Metformin as his had a CTA demonstrating the PE 4. BPH -Stable -Continue with Flomax 5. Dementia -Stable -Continue with donepezil and memantine as well as Zoloft DVT: Eliquis Inpatient E&M: 59040 Subs Hosp L2
--- NOTE | 2020-07-05 14:00 | NURSING ---
PTS O2 SAT 99% ON 5L NC - O2 DECREASED TO 4L NC. WILL MONITOR.
--- NOTE | 2020-07-05 16:29 | PN.ID_ITS ---
Patient Problems: Active and Suspected Problems COVID-19 (Acute) Hypoxia (Acute) Parkinson's disease dementia (Acute) Dehydration (Acute) Encephalopathy acute (Acute) Pulmonary embolism (Acute) Subjective: No events overnight, no fever - Physical Exam Vitals/I&O's: Vital Signs Temp Pulse Resp BP Pulse Ox 97.5 F L 76 20 H 130/70 H 99 07/05/20 13:58 07/05/20 13:58 07/05/20 14:00 07/05/20 13:58 07/05/20 14:00 Oxygen Flow Rate (L/min) 5 Oxygen Delivery Method Nasal Cannula Weight: 99.5 kg Body Mass Index (BMI) 29.7 Intake and Output for Last 24 Hours 07/03/20 07/04/20 07/05/20 23:59 23:59 23:59 Intake Total 1305.00 / 1305.00 1234.33 / 1484.33 800 / 800 Output Total 275 / 275 Balance 1305.00 / 1305.00 959.33 / 1209.33 800 / 800 General: Lethargic Lungs: Diminished Cardiovascular: Regular rate, Regular Rhythm Abdomen: Soft, Non Tender, Non-Distended Skin: No rashes Microbiology Past 72 Hours 07/03/20 13:30 Blood Culture (Wb) - Left Wrist Blood Culture - Preliminary No growth in 48 hours. 07/03/20 13:25 Blood Culture (Wb) - Anticubital Right Blood Culture - Preliminary No growth in 48 hours. 07/03/20 23:56 Urine, Clean Catch Streptococcus pneumoniae Antigen (M - Final 07/03/20 23:56 Urine, Clean Catch Legionella Antigen - Final Laboratory Results 07/04/20 16:56: POC Glucose 286 H 07/04/20 22:09: POC Glucose 197 H 07/05/20 06:14: WBC 11.7 H, RBC 3.64 L, Hgb 10.5 L, Hct 33.2 L, MCV 91.2, MCH 28.8, MCHC 31.6 L, RDW Std Deviation 43.1, RDW Coeff of Srinivasa 12.9, Plt Count 442, MPV 9.5, Immature Gran % (Auto) 1.300 H, Neut % (Auto) 74.8 H, Lymph % (Auto) 11.5 L, [place] % (Auto) 11.5 H, Eos % (Auto) 0.7, Baso % (Auto) 0.2, Absolute Neuts (auto) 8.7 H, Absolute Lymphs (auto) 1.34, Nucleated RBC % 0 07/05/20 06:14: Sodium 138, Potassium 3.9, Chloride 101, Carbon Dioxide 30.0, Anion Gap 7, BUN 28 H, Creatinine 0.84, Estim Creat Clear Calc 84.68, Est GFR (MDRD) Af Amer 116, Est GFR (MDRD) Non-Af 96, BUN/Creatinine Ratio 33.5 H, Glucose 114 H, Calcium 8.7, Total Bilirubin 0.50, AST 27, ALT 40, Alkaline Phosphatase 70, Total Protein 6.3 L, Albumin 2.5 L, Globulin 3.8, Albumin/Globulin Ratio 0.7 L 07/05/20 06:14: POC Glucose 124 H 07/05/20 12:12: POC Glucose 208 H Current Medications Acetaminophen (Acetaminophen 325 Mg Tablet) 650 mg PO Q4H PRN PRN PRN Reason: Pain Score 1-3 /Temp>100.7 Albuterol Sulfate (Albuterol Sulfate 8 Gm Inhaler (60 Puffs)) 2 puff INHALATION Q4H PRN PRN PRN Reason: Shortness of Breath/Wheezing Apixaban (Apixaban 5 Mg Tablet) 10 mg PO BID@0800,2200 [facility]; Taper Stop: 01/06/21 21:59 Last Admin: 07/05/20 09:16 Dose: 10 mg Documented by: Aspirin (Aspirin E.C. 81 Mg Tablet) 81 mg PO DAILY@0800 [facility] Last Admin: 07/05/20 09:20 Dose: 81 mg Documented by: Cholecalciferol (Cholecalciferol (Vit D3) 1,000 Unit (25mcg)) [facility] Last Admin: 07/05/20 09:18 Dose: 2,000 unit Documented by: Cyanocobalamin (Cyanocobalamin 500 Mcg Tablet) [facility] Last Admin: 07/05/20 09:17 Dose: 500 mcg Documented by: Dexamethasone Sodium Phosphate (Dexamethasone 10 Mg/Ml Vial) [facility] Last Admin: 07/05/20 09:21 Dose: 6 mg Documented by: Dextrose (Dextrose 50%-Water 25 Gm/50 Ml Disp.Syrin) 0 gm IV X1 PRN; Protocol PRN Reason: Hypoglycemia Donepezil HCl (Donepezil Hcl 10 Mg Tablet) 10 mg PO QHS [facility] Last Admin: 07/04/20 22:04 Dose: 10 mg Documented by: Folic Acid (Folic Acid 1 Mg Tablet) [facility] Last Admin: 07/05/20 09:19 Dose: 1 mg Documented by: Furosemide (Furosemide 40 Mg Tablet) [facility] Last Admin: 07/05/20 09:17 Dose: 40 mg Documented by: Glucagon (Glucagon 1 Mg/Ml Syringe) 1 mg IM .X1 PRN PRN Reason: Hypoglycemia Guaifenesin (Guaifenesin Dm 10 Ml Udc) 10 ml PO Q6H PRN PRN Reason: CONGESTION Remdesivir 100 mg/ Sodium (Chloride) 250 mls @ 125 mls/hr IV DAILY@0800 [facility]; Protocol Stop: 07/08/20 09:59 Last Infusion: 07/05/20 12:01 Dose: Infused Documented by: Sodium Chloride () 250 mls @ 15 mls/hr IV .[id number] PRN PRN Reason: Saline Flush Last Infusion: 07/05/20 09:36 Dose: Infused Documented by: Sodium Chloride () 250 mls @ 15 mls/hr IV .[id number] PRN PRN Reason: Additional IVPB Infusion Insulin Human Lispro (Insulin Lispro 100 Unit/Ml Insuln.Pen) 0 unit SC [facility]; Protocol Last Admin: 07/05/20 12:14 Dose: 4 u Documented by: Losartan Potassium (Losartan Potassium 25 Mg Tablet) [facility] Last Admin: 07/05/20 09:16 Dose: 25 mg Documented by: Memantine (Memantine Hydrochloride 5 Mg Tablet) 5 mg PO 0800,2200 [facility] Last Admin: 07/05/20 09:20 Dose: 5 mg Documented by: Ondansetron HCl (Ondansetron 4 Mg/2 Ml Vial) 4 mg IV Q8H PRN PRN PRN Reason: NAUSEA/VOMITING Potassium Chloride (Potassium Chloride 10 Meq Tablet) [facility] Last Admin: 07/05/20 09:17 Dose: 10 meq Documented by: Prochlorperazine Edisylate (Prochlorperazine 10 Mg/2 Ml Vial) 10 mg IV Q6H PRN PRN PRN Reason: Nausea/Vomiting Sertraline HCl (Sertraline Hcl 25 Mg Tablet) 12.5 mg PO DAILYCM [facility] Last Admin: 07/05/20 09:18 Dose: 12.5 mg Documented by: Sodium Chloride (0.9% Saline Lock 10 Ml Syringe) 10 - 40 ml IV UD PRN PRN Reason: SALINE FLUSH Last Admin: 07/05/20 09:22 Dose: 10 ml Documented by: Tamsulosin HCl (Tamsulosin Hcl 0.4 Mg Capsule) 0.8 mg PO QHS [facility] Last Admin: 07/04/20 22:04 Dose: 0.8 mg Documented by: Tizanidine HCl (Tizanidine Hcl 2 Mg Tablet) 2 mg PO 0800,2200 [facility] Last Admin: 07/05/20 09:20 Dose: 2 mg Documented by: Medical Necessity - Tobacco Use Smoking Status: Never smoker Route of nutrition/ use of supplements: [] Nutritional Intake: [] IV Site: [] Claudio Catheter: [] - Assessment/Plan Antibiotics: [] Assessment/Plan: [] Active and Suspected Problems COVID-19 (Acute) Hypoxia (Acute) Parkinson's disease dementia (Acute) Dehydration (Acute) Encephalopathy acute (Acute) Pulmonary embolism (Acute) covid with PE, hypoxia - on dex, eliquis, remdesivir. Change dex to po. Will follow
--- NOTE | 2020-07-05 17:04 | NURSING ---
attempted to call pt's significant other for pt to speak to - [phone] - no answer.
[2020-07-05 17:20] LABS: Bedside Glucose 296 mg/dL (70-110)
[2020-07-05] MEDS: Donepezil HCl 10 MG Tablet PO (20:46)
[2020-07-05] MEDS: Tamsulosin HCl 0.4 MG Capsule 0.8 MG PO (20:46)
[2020-07-05 23:06] LABS: Bedside Glucose 215 mg/dL (70-110)
[2020-07-06] VITALS (11 sets, daily range): BP systolic 131–146; BP diastolic 66–76; PULSE 62–94; RESP 18; TEMP 36.3–37; O2SAT 92–95
[2020-07-06 07:00] LABS: Bedside Glucose 132 mg/dL (70-110)
[2020-07-06 07:48] LABS: Absolute Lymphocyte Count 1.37 X10^3/uL (0.83-4.51); Absolute Neutrophil Count 8.9 X10^3/uL (2.0-7.7); Basophil# 0.04 X10^3/uL; Basophil% 0.3 % (0-1); Eosinophil# 0.07 X10^3/uL; Eosinophils% 0.6 % (0-5); Hematocrit 35.1 % (40-54); Hemoglobin 11.2 g/dL (13.0-16.5); Lymphocyte # 1.37 X10^3/ul (4.0); Lymphocyte % 11.4 % (19-41); Mean Corp Hgb Conc 31.9 g/dL (32-36); Mean Corpuscular Volume 90.9 fL (80-94); Mean Platelet Vol. 9.7 fl (6.2-12.0); Monocyte# 1.47 X10^3/uL; Monocyte% 12.3 % (0-10); NRBC Flagged by Analyzer 0 % (0-5); Neutrophil # 8.85 X10^3/uL (2.7-7.7); Neutrophil % 73.7 % (47-70); Platelet Count 465 K/mm3 (150-450); RBC Distribution Width CV 12.7 % (11.6-14.6); Red Blood Count 3.86 M/mm3 (4.6-6.2)
[2020-07-06] MEDS: SERTRALINE HCL 25 MG TABLET 12.5 MG PO (07:50)
[2020-07-06] MEDS: APIXABAN 5 MG TABLET 10 MG PO ×2 (07:50→20:30)
[2020-07-06] MEDS: Aspirin E.C. 81 MG Tablet PO (07:51)
[2020-07-06] MEDS: dexAMETHasone 4 MG Tablet 6 MG PO (07:52)
[2020-07-06] MEDS: tiZANidine HCl 2 MG Tablet PO ×2 (07:52→20:29)
[2020-07-06] MEDS: Cyanocobalamin 500 MCG Tablet PO (07:53)
[2020-07-06] MEDS: Folic Acid 1 MG Tablet PO (07:53)
[2020-07-06] MEDS: Memantine Hydrochloride 5 MG Tablet PO ×2 (07:53→20:29)
[2020-07-06] MEDS: Losartan Potassium 25 MG Tablet PO (07:53)
[2020-07-06] MEDS: Furosemide 40 MG Tablet PO (07:53)
[2020-07-06 08:34] LABS: ALB/GLOB Ratio 0.5 RATIO (0.9-2.4); AST(SGOT) 24 U/L (15-37); Alanine Aminotransfer ALT/SGPT 36 U/L (16-61); Albumin, Serum 2.4 g/dL (3.2-5.0); Alkaline Phosphatase 70 U/L (45-117); Anion Gap 7 (5-15); BUN 24 mg/dL (7-18); BUN/Creat Ratio 32.4 RATIO (10-20); Calcium,Total 8.6 mg/dL (8.5-10.1); Chloride 101 mmol/L (98-107); Creatinine, Serum 0.74 mg/dL (0.70-1.30); EST Glomerular Filtration Rate 110 mL/min (>60); Est Glom Filt Rate - Afr Amer 133 mL/min (>60); Estimated Creatinine Clearance 71.13 ml/min; Globulin 4.6 g/dL (2.2-4.2); Glucose 127 mg/dL (74-106); Potassium 3.8 mmol/L (3.5-5.1); Sodium Level 135 mmol/L (136-145)
--- NOTE | 2020-07-06 11:08 | PCM.PN.HOSP ---
Patient Problems: Active and Suspected Problems COVID-19 (Acute) Hypoxia (Acute) Parkinson's disease dementia (Acute) Dehydration (Acute) Encephalopathy acute (Acute) Pulmonary embolism (Acute) Subjective: Doing well, no issues overnight, still stable at 4 L Vitals/I&O's: Vital Signs Temp Pulse Resp BP Pulse Ox 97.5 F L 83 18 131/67 H 92 07/06/20 07:45 07/06/20 09:38 07/06/20 07:45 07/06/20 07:45 07/06/20 08:23 Oxygen Flow Rate (L/min) 4 Oxygen Delivery Method Nasal Cannula Weight: 219 lb 5.759 oz Body Mass Index (BMI) 29.7 Intake and Output for Last 24 Hours 07/04/20 07/05/20 07/06/20 23:59 23:59 23:59 Intake Total 1234.33 / 1484.33 1140 / 1140 Output Total 275 / 275 Balance 959.33 / 1209.33 1140 / 1140 General: Alert, Confused HEENT: Atraumatic, PERRLA, EOMI, Normocephalic Oral: Moist Mucosa Neck: Supple, No JVD Lungs: Normal air movement, No rhonchi, No wheeze, No rales, Diminished Cardiovascular: Regular rate, Regular Rhythm, Normal S1, Normal S2, No murmurs Abdomen: Soft, Non Tender, Non-Distended, No Hepato-splenomegaly Extremities: No edema, Capillary Refill Less than 3 Seconds Skin: No rashes, No breakdown Neurological: Neuro grossly intact, Sensory exam intact to light touch and pain Psych/Mental Status: Flat Affect Microbiology Past 72 Hours 07/03/20 13:30 Blood Culture (Wb) - Left Wrist Blood Culture - Preliminary No growth in 48 hours. 07/03/20 13:25 Blood Culture (Wb) - Anticubital Right Blood Culture - Preliminary No growth in 48 hours. 07/03/20 23:56 Urine, Clean Catch Streptococcus pneumoniae Antigen (M - Final 07/03/20 23:56 Urine, Clean Catch Legionella Antigen - Final Laboratory Results 07/05/20 12:12: POC Glucose 208 H 07/05/20 16:55: POC Glucose 296 H 07/05/20 21:35: POC Glucose 215 H 07/06/20 06:00: WBC 12.0 H, RBC 3.86 L, Hgb 11.2 L, Hct 35.1 L, MCV 90.9, MCH 29.0, MCHC 31.9 L, RDW Std Deviation 42.0, RDW Coeff of Srinivasa 12.7, Plt Count 465 H, MPV 9.7, Immature Gran % (Auto) 1.700 H, Neut % (Auto) 73.7 H, Lymph % (Auto) 11.4 L, [place] % (Auto) 12.3 H, Eos % (Auto) 0.6, Baso % (Auto) 0.3, Absolute Neuts (auto) 8.9 H, Absolute Lymphs (auto) 1.37, Nucleated RBC % 0 07/06/20 06:00: Sodium 135 L, Potassium 3.8, Chloride 101, Carbon Dioxide 27.0, Anion Gap 7, BUN 24 H, Creatinine 0.74, Estim Creat Clear Calc 71.13, Est GFR (MDRD) Af Amer 133, Est GFR (MDRD) Non-Af 110, BUN/Creatinine Ratio 32.4 H, Glucose 127 H, Calcium 8.6, Total Bilirubin 0.50, AST 24, ALT 36, Alkaline Phosphatase 70, Total Protein 7.0, Albumin 2.4 L, Globulin 4.6 H, Albumin/Globulin Ratio 0.5 L 07/06/20 06:38: POC Glucose 132 H Current Medications Acetaminophen (Acetaminophen 325 Mg Tablet) 650 mg PO Q4H PRN PRN PRN Reason: Pain Score 1-3 /Temp>100.7 Albuterol Sulfate (Albuterol Sulfate 8 Gm Inhaler (60 Puffs)) 2 puff INHALATION Q4H PRN PRN PRN Reason: Shortness of Breath/Wheezing Apixaban (Apixaban 5 Mg Tablet) 10 mg PO BID@0800,2200 [facility]; Taper Stop: 01/06/21 21:59 Last Admin: 07/06/20 07:50 Dose: 10 mg Documented by: Aspirin (Aspirin E.C. 81 Mg Tablet) 81 mg PO DAILY@0800 [facility] Last Admin: 07/06/20 07:51 Dose: 81 mg Documented by: Cholecalciferol (Cholecalciferol (Vit D3) 1,000 Unit (25mcg)) [facility] Last Admin: 07/06/20 07:52 Dose: 2,000 unit Documented by: Cyanocobalamin (Cyanocobalamin 500 Mcg Tablet) [facility] Last Admin: 07/06/20 07:53 Dose: 500 mcg Documented by: Dexamethasone (Dexamethasone 4 Mg Tablet) 6 mg PO DAILY [facility] Stop: 07/12/20 10:01 Last Admin: 07/06/20 07:52 Dose: 6 mg Documented by: Dextrose (Dextrose 50%-Water 25 Gm/50 Ml Disp.Syrin) 0 gm IV X1 PRN; Protocol PRN Reason: Hypoglycemia Donepezil HCl (Donepezil Hcl 10 Mg Tablet) 10 mg PO QHS [facility] Last Admin: 07/05/20 20:46 Dose: 10 mg Documented by: Folic Acid (Folic Acid 1 Mg Tablet) [facility] Last Admin: 07/06/20 07:53 Dose: 1 mg Documented by: Furosemide (Furosemide 40 Mg Tablet) [facility] Last Admin: 07/06/20 07:53 Dose: 40 mg Documented by: Glucagon (Glucagon 1 Mg/Ml Syringe) 1 mg IM .X1 PRN PRN Reason: Hypoglycemia Guaifenesin (Guaifenesin Dm 10 Ml Udc) 10 ml PO Q6H PRN PRN Reason: CONGESTION Remdesivir 100 mg/ Sodium (Chloride) 250 mls @ 125 mls/hr IV DAILY@0800 [facility]; Protocol Stop: 07/08/20 09:59 Last Admin: 07/06/20 08:13 Dose: 125 mls/hr Documented by: Sodium Chloride () 250 mls @ 15 mls/hr IV .[id number] PRN PRN Reason: Saline Flush Last Infusion: 07/05/20 09:36 Dose: Infused Documented by: Sodium Chloride () 250 mls @ 15 mls/hr IV .[id number] PRN PRN Reason: Additional IVPB Infusion Insulin Human Lispro (Insulin Lispro 100 Unit/Ml Insuln.Pen) 0 unit SC [facility]; Protocol Last Admin: 07/06/20 06:38 Dose: Not Given Documented by: Losartan Potassium (Losartan Potassium 25 Mg Tablet) [facility] Last Admin: 07/06/20 07:53 Dose: 25 mg Documented by: Memantine (Memantine Hydrochloride 5 Mg Tablet) 5 mg PO 0800,2200 [facility] Last Admin: 07/06/20 07:53 Dose: 5 mg Documented by: Ondansetron HCl (Ondansetron 4 Mg/2 Ml Vial) 4 mg IV Q8H PRN PRN PRN Reason: NAUSEA/VOMITING Potassium Chloride (Potassium Chloride 10 Meq Tablet) 10 meq [facility] Last Admin: 07/06/20 07:51 Dose: 10 meq Documented by: Prochlorperazine Edisylate (Prochlorperazine 10 Mg/2 Ml Vial) 10 mg IV Q6H PRN PRN PRN Reason: Nausea/Vomiting Sertraline HCl (Sertraline Hcl 25 Mg Tablet) 12.5 mg [facility] Last Admin: 07/06/20 07:50 Dose: 12.5 mg Documented by: Sodium Chloride (0.9% Saline Lock 10 Ml Syringe) 10 - 40 ml IV UD PRN PRN Reason: SALINE FLUSH Last Admin: 07/05/20 09:22 Dose: 10 ml Documented by: Tamsulosin HCl (Tamsulosin Hcl 0.4 Mg Capsule) 0.8 mg PO QHS [facility] Last Admin: 07/05/20 20:46 Dose: 0.8 mg Documented by: Tizanidine HCl (Tizanidine Hcl 2 Mg Tablet) 2 mg PO 0800,2200 [facility] Last Admin: 07/06/20 07:52 Dose: 2 mg Documented by: STROKE Vital Signs/Narrative: Vital Signs Temp Pulse Resp BP Pulse Ox 07/06/20 09:38 83 07/06/20 08:23 92 07/06/20 07:45 97.5 F L 77 18 131/67 H 92 Medical Necessity - Tobacco Use Smoking Status: Never smoker Assessment/Plan All Active Problems COVID-19 (Acute) Hypoxia (Acute) Parkinson's disease dementia (Acute) Dehydration (Acute) Encephalopathy acute (Acute) Pulmonary embolism (Acute) Tobacco dependency (Acute) Fever (Acute) Strep throat (Acute) Confusion (Acute) 1. Acute hypoxic respiratory failure secondary to COVID-19 pneumonia and PE/debility -Continue with Decadron and remdesivir, with maintaining oxygen sats on 4 L nasal cannula -Anticoagulated with Eliquis -PT/OT for evaluation of possible placement 2. HTN/HLD -Blood pressure is stable -Continue with Lasix, his blood pressure is actually controlled just with the Lasix therefore can continue to hold losartan 3. DM 2 -We will hold all oral hypoglycemics, and transition to sliding scale insulin -Accu-Cheks AC at bedtime -Would not restart Metformin as his had a CTA demonstrating the PE 4. BPH -Stable -Continue with Flomax 5. Dementia -Stable -Continue with donepezil and memantine as well as Zoloft DVT: Eliquis Inpatient E&M: 56451 Subs Hosp L2
[2020-07-06] MEDS: Insulin Lispro 100 UNIT/ML INSULN.PEN SC ×3 (11:43→20:28)
[2020-07-06 11:55] LABS: Bedside Glucose 263 mg/dL (70-110)
[2020-07-06 16:26] LABS: Bedside Glucose 379 mg/dL (70-110)
[2020-07-06] MEDS: Tamsulosin HCl 0.4 MG Capsule 0.8 MG PO (20:28)
[2020-07-06] MEDS: Donepezil HCl 10 MG Tablet PO (20:29)
--- NOTE | 2020-07-06 22:00 | NURSING ---
called for update
[2020-07-06 23:36] LABS: Bedside Glucose 276 mg/dL (70-110)
[2020-07-07] VITALS (8 sets, daily range): BP systolic 124–141; BP diastolic 66–73; PULSE 58–83; RESP 17–19; TEMP 36.4–36.7; O2SAT 93–95
[2020-07-07] MEDS: Insulin Lispro 100 UNIT/ML INSULN.PEN SC ×4 (06:42→20:24)
[2020-07-07 06:50] LABS: Bedside Glucose 157 mg/dL (70-110)
[2020-07-07 06:52] LABS: Absolute Lymphocyte Count 1.53 X10^3/uL (0.83-4.51); Absolute Neutrophil Count 9.5 X10^3/uL (2.0-7.7); Basophil# 0.05 X10^3/uL; Basophil% 0.4 % (0-1); Eosinophil# 0.09 X10^3/uL; Eosinophils% 0.7 % (0-5); Hematocrit 37.1 % (40-54); Hemoglobin 12.3 g/dL (13.0-16.5); Lymphocyte # 1.53 X10^3/ul (4.0); Lymphocyte % 12.1 % (19-41); Mean Corp Hgb Conc 33.2 g/dL (32-36); Mean Corpuscular Hgb 29.1 pg (27.0-32.0); Mean Corpuscular Volume 87.9 fL (80-94); Mean Platelet Vol. 9.3 fl (6.2-12.0); Monocyte# 1.22 X10^3/uL; Monocyte% 9.7 % (0-10); NRBC Flagged by Analyzer 0 % (0-5); Neutrophil # 9.45 X10^3/uL (2.7-7.7); Platelet Count 472 K/mm3 (150-450); RBC Distribution Width CV 12.8 % (11.6-14.6); RBC Distribution Width SD 40.4 fl (35.1-43.9); Red Blood Count 4.22 M/mm3 (4.6-6.2); White Blood Count 12.6 K/mm3 (4.4-11.0)
[2020-07-07 07:23] LABS: ALB/GLOB Ratio 0.6 RATIO (0.9-2.4); AST(SGOT) 19 U/L (15-37); Alanine Aminotransfer ALT/SGPT 36 U/L (16-61); Albumin, Serum 2.6 g/dL (3.2-5.0); Alkaline Phosphatase 77 U/L (45-117); Anion Gap 5 (5-15); BUN 22 mg/dL (7-18); BUN/Creat Ratio 29.6 RATIO (10-20); Calcium,Total 8.6 mg/dL (8.5-10.1); Chloride 98 mmol/L (98-107); Creatinine, Serum 0.74 mg/dL (0.70-1.30); EST Glomerular Filtration Rate 109 mL/min (>60); Est Glom Filt Rate - Afr Amer 132 mL/min (>60); Estimated Creatinine Clearance 71.13 ml/min; Globulin 4.6 g/dL (2.2-4.2); Glucose 153 mg/dL (74-106); Protein, Total 7.2 g/dL (6.4-8.2); Sodium Level 133 mmol/L (136-145)
[2020-07-07] MEDS: dexAMETHasone 4 MG Tablet 6 MG PO (07:36)
[2020-07-07] MEDS: tiZANidine HCl 2 MG Tablet PO ×2 (07:37→20:25)
[2020-07-07] MEDS: Furosemide 40 MG Tablet PO (07:38)
[2020-07-07] MEDS: Cyanocobalamin 500 MCG Tablet PO (07:39)
[2020-07-07] MEDS: Folic Acid 1 MG Tablet PO (07:40)
[2020-07-07] MEDS: SERTRALINE HCL 25 MG TABLET 12.5 MG PO (07:41)
[2020-07-07] MEDS: Memantine Hydrochloride 5 MG Tablet PO ×2 (07:41→20:25)
[2020-07-07] MEDS: APIXABAN 5 MG TABLET 10 MG PO ×2 (07:42→20:25)
[2020-07-07] MEDS: Aspirin E.C. 81 MG Tablet PO (07:43)
[2020-07-07] MEDS: Losartan Potassium 25 MG Tablet PO (07:43)
[2020-07-07] MEDS: 0.9% Saline Lock 10 ML Syringe IV (08:29)
--- NOTE | 2020-07-07 08:41 | PN_ITS ---
Patient Problems: Active and Suspected Problems COVID-19 (Acute) Hypoxia (Acute) Parkinson's disease dementia (Acute) Dehydration (Acute) Encephalopathy acute (Acute) Pulmonary embolism (Acute) Subjective: The patient was seen and examined at the bedside this morning. Events from the last 24 hours have been reviewed. The patient is currently afebrile, hemodynamically stable and maintaining appropriate oxygen saturations on 3 L/min via nasal cannula. The patient remains systemically anticoagulated on Eliquis. In addition, he remains on Decadron and remdesivir. Liver and renal function are stable. The patient appears much more alert and interactive this morning. He denies the presence of shortness of breath, but does report the continued presence of a nonproductive cough. Objective: The patient's most recent lab work, culture data and imaging studies have all been personally reviewed. Strep and urine Legionella antigens were negative. Blood cultures have shown no growth to date. - Physical Exam Vitals/I&O's: Vital Signs Temp Pulse Resp BP Pulse Ox 97.6 F L 71 18 125/72 H 95 07/07/20 07:33 07/07/20 07:33 07/07/20 07:33 07/07/20 07:33 07/07/20 08:02 Oxygen Flow Rate (L/min) 3 Oxygen Delivery Method Nasal Cannula Weight: 219 lb 5.759 oz Body Mass Index (BMI) 29.7 Intake and Output for Last 24 Hours 07/05/20 07/06/20 07/07/20 23:59 23:59 23:59 Intake Total 1140 / 1140 250 / 600 600 / 600 Balance 1140 / 1140 250 / 600 600 / 600 General: Alert, Cooperative, No apparent distress HEENT: Atraumatic, PERRLA, Normocephalic Oral: No Gingival or Mucosal Lesions/ Ulcerations Neck: Supple, No Nodes, Trachea Midline Lungs: No rhonchi, No wheeze, No rales, Diminished Cardiovascular: Regular rate, Regular Rhythm, Normal S1, Normal S2, No murmurs Abdomen: Bowel Sounds Present, Soft, Non Tender Extremities: No clubbing, No cyanosis, No edema Skin: - - No significant change from previous Musculoskeletal: No Tenderness to Palpation of Joints or Extremities Lymphatic: No Cervical, Supraclavicular, or Inguinal Adenopathy Neurological: Neuro grossly intact Psych/Mental Status: Flat Affect Labs (Last 48 Hours) 07/05/20 07/05/20 07/05/20 12:12 16:55 21:35 WBC RBC Hgb Hct MCV MCH MCHC RDW Std Deviation RDW Coeff of Srinivasa Plt Count MPV Immature Gran % (Auto) Neut % (Auto) Lymph % (Auto) [place] % (Auto) Eos % (Auto) Baso % (Auto) Absolute Neuts (auto) Absolute Lymphs (auto) Nucleated RBC % Sodium Potassium Chloride Carbon Dioxide Anion Gap BUN Creatinine Estim Creat Clear Calc Est GFR (MDRD) Af Amer Est GFR (MDRD) Non-Af BUN/Creatinine Ratio Glucose Calcium Total Bilirubin AST ALT Alkaline Phosphatase Total Protein Albumin Globulin Albumin/Globulin Ratio POC Glucose 208 H 296 H 215 H 07/06/20 07/06/20 07/06/20 06:00 06:00 06:38 WBC 12.0 H RBC 3.86 L Hgb 11.2 L Hct 35.1 L MCV 90.9 MCH 29.0 MCHC 31.9 L RDW Std Deviation 42.0 RDW Coeff of Srinivasa 12.7 Plt Count 465 H MPV 9.7 Immature Gran % (Auto) 1.700 H Neut % (Auto) 73.7 H Lymph % (Auto) 11.4 L [place] % (Auto) 12.3 H Eos % (Auto) 0.6 Baso % (Auto) 0.3 Absolute Neuts (auto) 8.9 H Absolute Lymphs (auto) 1.37 Nucleated RBC % 0 Sodium 135 L Potassium 3.8 Chloride 101 Carbon Dioxide 27.0 Anion Gap 7 BUN 24 H Creatinine 0.74 Estim Creat Clear Calc 71.13 Est GFR (MDRD) Af Amer 133 Est GFR (MDRD) Non-Af 110 BUN/Creatinine Ratio 32.4 H Glucose 127 H Calcium 8.6 Total Bilirubin 0.50 AST 24 ALT 36 Alkaline Phosphatase 70 Total Protein 7.0 Albumin 2.4 L Globulin 4.6 H Albumin/Globulin Ratio 0.5 L POC Glucose 132 H 07/06/20 07/06/20 07/06/20 11:42 16:09 20:21 WBC RBC Hgb Hct MCV MCH MCHC RDW Std Deviation RDW Coeff of Srinivasa Plt Count MPV Immature Gran % (Auto) Neut % (Auto) Lymph % (Auto) [place] % (Auto) Eos % (Auto) Baso % (Auto) Absolute Neuts (auto) Absolute Lymphs (auto) Nucleated RBC % Sodium Potassium Chloride Carbon Dioxide Anion Gap BUN Creatinine Estim Creat Clear Calc Est GFR (MDRD) Af Amer Est GFR (MDRD) Non-Af BUN/Creatinine Ratio Glucose Calcium Total Bilirubin AST ALT Alkaline Phosphatase Total Protein Albumin Globulin Albumin/Globulin Ratio POC Glucose 263 H 379 H 276 H 07/07/20 07/07/20 07/07/20 06:05 06:05 06:40 WBC 12.6 H RBC 4.22 L Hgb 12.3 L Hct 37.1 L MCV 87.9 MCH 29.1 MCHC 33.2 RDW Std Deviation 40.4 RDW Coeff of Srinivasa 12.8 Plt Count 472 H MPV 9.3 Immature Gran % (Auto) 2.100 H Neut % (Auto) 75.0 H Lymph % (Auto) 12.1 L [place] % (Auto) 9.7 Eos % (Auto) 0.7 Baso % (Auto) 0.4 Absolute Neuts (auto) 9.5 H Absolute Lymphs (auto) 1.53 Nucleated RBC % 0 Sodium 133 L Potassium 4.0 Chloride 98 Carbon Dioxide 30.0 Anion Gap 5 BUN 22 H Creatinine 0.74 Estim Creat Clear Calc 71.13 Est GFR (MDRD) Af Amer 132 Est GFR (MDRD) Non-Af 109 BUN/Creatinine Ratio 29.6 H Glucose 153 H Calcium 8.6 Total Bilirubin 0.60 AST 19 ALT 36 Alkaline Phosphatase 77 Total Protein 7.2 Albumin 2.6 L Globulin 4.6 H Albumin/Globulin Ratio 0.6 L POC Glucose 157 H Microbiology 07/03/20 13:30 Blood Culture (Wb) - Left Wrist Blood Culture - Preliminary No growth in 48 hours. 07/03/20 13:25 Blood Culture (Wb) - Anticubital Right Blood Culture - Preliminary No growth in 48 hours. Clinical Impression(s) from Imaging Studies Chest X-Ray 07/03/20 13:15 IMPRESSION: Patchy bilateral pulmonary infiltrates worse in the lower lobes. Electronically Signed: Jose Villalobos, at 13:56 EST , Service support , Chest CTA 07/03/20 14:32 IMPRESSION: Multiple small pulmonary emboli in the upper lobe pulmonary arterial branches. Diffuse bilateral pulmonary infiltrates as described. Electronically Signed: Jose Villalobos, at 15:10 EST , Service support , Current Medications Acetaminophen (Acetaminophen 325 Mg Tablet) 650 mg PO Q4H PRN PRN PRN Reason: Pain Score 1-3 /Temp>100.7 Albuterol Sulfate (Albuterol Sulfate 8 Gm Inhaler (60 Puffs)) 2 puff INHALATION Q4H PRN PRN PRN Reason: Shortness of Breath/Wheezing Apixaban (Apixaban 5 Mg Tablet) 10 mg PO BID@0800,[facility]; Taper Stop: 01/06/21 21:59 Last Admin: 07/07/20 07:42 Dose: 10 mg Documented by: Aspirin (Aspirin E.C. 81 Mg Tablet) 81 mg PO DAILY@[facility] Last Admin: 07/07/20 07:43 Dose: 81 mg Documented by: Cholecalciferol (Cholecalciferol (Vit D3) 1,000 Unit (25mcg)) [facility] Last Admin: 07/07/20 07:37 Dose: 2,000 unit Documented by: Cyanocobalamin (Cyanocobalamin 500 Mcg Tablet) [facility] Last Admin: 07/07/20 07:39 Dose: 500 mcg Documented by: Dexamethasone (Dexamethasone 4 Mg Tablet) 6 mg PO DAILY [facility] Stop: 07/12/20 10:01 Last Admin: 07/07/20 07:36 Dose: 6 mg Documented by: Dextrose (Dextrose 50%-Water 25 Gm/50 Ml Disp.Syrin) 0 gm IV X1 PRN; Protocol PRN Reason: Hypoglycemia Donepezil HCl (Donepezil Hcl 10 Mg Tablet) 10 mg PO QHS [facility] Last Admin: 07/06/20 20:29 Dose: 10 mg Documented by: Folic Acid (Folic Acid 1 Mg Tablet) [facility] Last Admin: 07/07/20 07:40 Dose: 1 mg Documented by: Furosemide (Furosemide 40 Mg Tablet) [facility] Last Admin: 07/07/20 07:38 Dose: 40 mg Documented by: Glucagon (Glucagon 1 Mg/Ml Syringe) 1 mg IM .X1 PRN PRN Reason: Hypoglycemia Guaifenesin (Guaifenesin Dm 10 Ml Udc) 10 ml PO Q6H PRN PRN Reason: CONGESTION Remdesivir 100 mg/ Sodium (Chloride) 250 mls @ 125 mls/hr IV DAILY@[facility]00 [facility]; Protocol Stop: 07/08/20 09:59 Last Admin: 07/07/20 08:29 Dose: 125 mls/hr Documented by: Sodium Chloride () 250 mls @ 15 mls/hr IV .[id number] PRN PRN Reason: Saline Flush Last Infusion: 07/05/20 09:36 Dose: Infused Documented by: Sodium Chloride () 250 mls @ 15 mls/hr IV .[id number] PRN PRN Reason: Additional IVPB Infusion Insulin Human Lispro (Insulin Lispro 100 Unit/Ml Insuln.Pen) 0 unit SC [facility]; Protocol Last Admin: 07/07/20 06:42 Dose: 2 u Documented by: Losartan Potassium (Losartan Potassium 25 Mg Tablet) [facility] Last Admin: 07/07/20 07:43 Dose: 25 mg Documented by: Memantine (Memantine Hydrochloride 5 Mg Tablet) 5 mg PO 0800,2200 [facility] Last Admin: 07/07/20 07:41 Dose: 5 mg Documented by: Ondansetron HCl (Ondansetron 4 Mg/2 Ml Vial) 4 mg IV Q8H PRN PRN PRN Reason: NAUSEA/VOMITING Potassium Chloride (Potassium Chloride 10 Meq Tablet) [facility] Last Admin: 07/07/20 07:41 Dose: 10 meq Documented by: Prochlorperazine Edisylate (Prochlorperazine 10 Mg/2 Ml Vial) 10 mg IV Q6H PRN PRN PRN Reason: Nausea/Vomiting Sertraline HCl (Sertraline Hcl 25 Mg Tablet) 12.[facility] Last Admin: 07/07/20 07:41 Dose: 12.5 mg Documented by: Sodium Chloride (0.9% Saline Lock 10 Ml Syringe) 10 - 40 ml IV UD PRN PRN Reason: SALINE FLUSH Last Admin: 07/07/20 08:29 Dose: 10 ml Documented by: Tamsulosin HCl (Tamsulosin Hcl 0.4 Mg Capsule) 0.8 mg PO QHS [facility] Last Admin: 07/06/20 20:28 Dose: 0.8 mg Documented by: Tizanidine HCl (Tizanidine Hcl 2 Mg Tablet) 2 mg PO 0800,2200 [facility] Last Admin: 07/07/20 07:37 Dose: 2 mg Documented by: Medical Necessity - Tobacco Use Smoking Status: Never smoker Assessment/Plan All Active Problems COVID-19 (Acute) Hypoxia (Acute) Parkinson's disease dementia (Acute) Dehydration (Acute) Encephalopathy acute (Acute) Pulmonary embolism (Acute) Tobacco dependency (Acute) Fever (Acute) Strep throat (Acute) Confusion (Acute) RECOMMENDATIONS: 1. Continue systemic anticoagulation with Eliquis as ordered. 2. Continue Decadron 6 mg daily x10 days. 3. Continue remdesivir. Monitor liver and renal function accordingly. 4. Wean supplemental oxygen to maintain saturations at or above 90%. 5. Attempt to encourage incentive spirometer use and mobilize patient as tolerated. IMPRESSIONS: 1. Acute hypoxemic respiratory failure Multifactorial in etiology with underlying COVID-19 pneumonia and bilateral pulmonary emboli contributing. Plan to continue current supportive measures with supplemental oxygen to maintain saturations at or above 90%. The patient will be continued on Decadron and remdesivir. Continue systemic anticoagulation with Eliquis as ordered. Attempt to encourage incentive spirometer use while in bed and mobilize patient as tolerated. 2. Advanced age/deconditioning/baseline dementia/diabetes mellitus/hypertension Complicates care, management, recovery and prognosis. Physical therapy to work with the patient. This note was generated with [email or web address] dictation software. It may contain incorrect words, spelling, and punctuation that were not noted in checking the note before signing. Inpatient E&M: 37378 Subs Hosp L2
--- NOTE | 2020-07-07 10:32 | PN_ITS ---
Patient Problems: Active and Suspected Problems COVID-19 (Acute) Hypoxia (Acute) Parkinson's disease dementia (Acute) Dehydration (Acute) Encephalopathy acute (Acute) Pulmonary embolism (Acute) Subjective: Doing well today. No issues overnight. Continue oxygen saturations on 3 L nasal cannula. Vitals/I&O's: Vital Signs Temp Pulse Resp BP Pulse Ox 97.6 F L 71 18 125/72 H 95 07/07/20 07:33 07/07/20 07:33 07/07/20 07:33 07/07/20 07:33 07/07/20 08:02 Oxygen Flow Rate (L/min) 3 Oxygen Delivery Method Nasal Cannula Weight: 219 lb 5.759 oz Body Mass Index (BMI) 29.7 Intake and Output for Last 24 Hours 07/05/20 07/06/20 07/07/20 23:59 23:59 23:59 Intake Total 1140 / 1140 250 / 600 600 / 600 Balance 1140 / 1140 250 / 600 600 / 600 General: Alert, Confused HEENT: Atraumatic, PERRLA, EOMI, Normocephalic Oral: Moist Mucosa Neck: Supple, No JVD Lungs: Normal air movement, No rhonchi, No wheeze, No rales, Diminished Cardiovascular: Regular rate, Regular Rhythm, Normal S1, Normal S2, No murmurs Abdomen: Soft, Non Tender, Non-Distended, No Hepato-splenomegaly Extremities: No edema, Capillary Refill Less than 3 Seconds Skin: No rashes, No breakdown Neurological: Neuro grossly intact, Sensory exam intact to light touch and pain Psych/Mental Status: Flat Affect Microbiology Past 72 Hours 07/03/20 13:30 Blood Culture (Wb) - Left Wrist Blood Culture - Preliminary No growth in 48 hours. 07/03/20 13:25 Blood Culture (Wb) - Anticubital Right Blood Culture - Preliminary No growth in 48 hours. Laboratory Results 07/06/20 11:42: POC Glucose 263 H 07/06/20 16:09: POC Glucose 379 H 07/06/20 20:21: POC Glucose 276 H 07/07/20 06:05: WBC 12.6 H, RBC 4.22 L, Hgb 12.3 L, Hct 37.1 L, MCV 87.9, MCH 29.1, MCHC 33.2, RDW Std Deviation 40.4, RDW Coeff of Srinivasa 12.8, Plt Count 472 H, MPV 9.3, Immature Gran % (Auto) 2.100 H, Neut % (Auto) 75.0 H, Lymph % (Auto) 12.1 L, [place] % (Auto) 9.7, Eos % (Auto) 0.7, Baso % (Auto) 0.4, Absolute Neuts (auto) 9.5 H, Absolute Lymphs (auto) 1.53, Nucleated RBC % 0 07/07/20 06:05: Sodium 133 L, Potassium 4.0, Chloride 98, Carbon Dioxide 30.0, Anion Gap 5, BUN 22 H, Creatinine 0.74, Estim Creat Clear Calc 71.13, Est GFR (MDRD) Af Amer 132, Est GFR (MDRD) Non-Af 109, BUN/Creatinine Ratio 29.6 H, Glucose 153 H, Calcium 8.6, Total Bilirubin 0.60, AST 19, ALT 36, Alkaline Phosphatase 77, Total Protein 7.2, Albumin 2.6 L, Globulin 4.6 H, Albumin/Globulin Ratio 0.6 L 07/07/20 06:40: POC Glucose 157 H Current Medications Acetaminophen (Acetaminophen 325 Mg Tablet) 650 mg PO Q4H PRN PRN PRN Reason: Pain Score 1-3 /Temp>100.7 Albuterol Sulfate (Albuterol Sulfate 8 Gm Inhaler (60 Puffs)) 2 puff INHALATION Q4H PRN PRN PRN Reason: Shortness of Breath/Wheezing Apixaban (Apixaban 5 Mg Tablet) 10 mg PO BID@0800,2200 [facility]; Taper Stop: 01/06/21 21:59 Last Admin: 07/07/20 07:42 Dose: 10 mg Documented by: Aspirin (Aspirin E.C. 81 Mg Tablet) 81 mg PO DAILY@0800 [facility] Last Admin: 07/07/20 07:43 Dose: 81 mg Documented by: Cholecalciferol (Cholecalciferol (Vit D3) 1,000 Unit (25mcg)) [facility] Last Admin: 07/07/20 07:37 Dose: 2,000 unit Documented by: Cyanocobalamin (Cyanocobalamin 500 Mcg Tablet) 500 [facility]cg [facility] Last Admin: 07/07/20 07:39 Dose: 500 mcg Documented by: Dexamethasone (Dexamethasone 4 Mg Tablet) 6 mg PO DAILY [facility] Stop: 07/12/20 10:01 Last Admin: 07/07/20 07:36 Dose: 6 mg Documented by: Dextrose (Dextrose 50%-Water 25 Gm/50 Ml Disp.Syrin) 0 gm IV X1 PRN; Protocol PRN Reason: Hypoglycemia Donepezil HCl (Donepezil Hcl 10 Mg Tablet) 10 mg PO QHS [facility] Last Admin: 07/06/20 20:29 Dose: 10 mg Documented by: Folic Acid (Folic Acid 1 Mg Tablet) [facility] Last Admin: 07/07/20 07:40 Dose: 1 mg Documented by: Furosemide (Furosemide 40 Mg Tablet) 40 [facility] Last Admin: 07/07/20 07:38 Dose: 40 mg Documented by: Glucagon (Glucagon 1 Mg/Ml Syringe) 1 mg IM .X1 PRN PRN Reason: Hypoglycemia Guaifenesin (Guaifenesin Dm 10 Ml Udc) 10 ml PO Q6H PRN PRN Reason: CONGESTION Remdesivir 100 mg/ Sodium (Chloride) 250 mls @ 125 mls/hr IV DAILY@0800 [facility]; Protocol Stop: 07/08/20 09:59 Last Admin: 07/07/20 08:29 Dose: 125 mls/hr Documented by: Sodium Chloride () 250 mls @ 15 mls/hr IV .[id number] PRN PRN Reason: Saline Flush Last Infusion: 07/05/20 09:36 Dose: Infused Documented by: Sodium Chloride () 250 mls @ 15 mls/hr IV .[id number] PRN PRN Reason: Additional IVPB Infusion Insulin Human Lispro (Insulin Lispro 100 Unit/Ml Insuln.Pen) 0 unit SC [facility]; Protocol Last Admin: 07/07/20 06:42 Dose: 2 u Documented by: Losartan Potassium (Losartan Potassium 25 Mg Tablet) [facility] Last Admin: 07/07/20 07:43 Dose: 25 mg Documented by: Memantine (Memantine Hydrochloride 5 Mg Tablet) 5 mg PO 0800,2200 [facility] Last Admin: 07/07/20 07:41 Dose: 5 mg Documented by: Ondansetron HCl (Ondansetron 4 Mg/2 Ml Vial) 4 mg IV Q8H PRN PRN PRN Reason: NAUSEA/VOMITING Potassium Chloride (Potassium Chloride 10 Meq Tablet) 10 meq [facility] Last Admin: 07/07/20 07:41 Dose: 10 meq Documented by: Prochlorperazine Edisylate (Prochlorperazine 10 Mg/2 Ml Vial) 10 mg IV Q6H PRN PRN PRN Reason: Nausea/Vomiting Sertraline HCl (Sertraline Hcl 25 Mg Tablet) 12.5 mg [facility] Last Admin: 07/07/20 07:41 Dose: 12.5 mg Documented by: Sodium Chloride (0.9% Saline Lock 10 Ml Syringe) 10 - 40 ml IV UD PRN PRN Reason: SALINE FLUSH Last Admin: 07/07/20 08:29 Dose: 10 ml Documented by: Tamsulosin HCl (Tamsulosin Hcl 0.4 Mg Capsule) 0.8 mg PO QHS [facility] Last Admin: 07/06/20 20:28 Dose: 0.8 mg Documented by: Tizanidine HCl (Tizanidine Hcl 2 Mg Tablet) 2 mg PO 0800,2200 [facility] Last Admin: 07/07/20 07:37 Dose: 2 mg Documented by: STROKE Vital Signs/Narrative: Vital Signs Temp Pulse Resp BP Pulse Ox 07/07/20 08:02 95 07/07/20 07:33 97.6 F L 71 18 125/72 H 95 Medical Necessity - Tobacco Use Smoking Status: Never smoker Assessment/Plan All Active Problems COVID-19 (Acute) Hypoxia (Acute) Parkinson's disease dementia (Acute) Dehydration (Acute) Encephalopathy acute (Acute) Pulmonary embolism (Acute) Tobacco dependency (Acute) Fever (Acute) Strep throat (Acute) Confusion (Acute) 1. Acute hypoxic respiratory failure secondary to COVID-19 pneumonia and PE/debility -Continue with Decadron and remdesivir, with maintaining oxygen sats on 3 L nasal cannula -Anticoagulated with Eliquis -PT/OT for evaluation of possible placement -Family would like him to be able to go back to his old room and therefore they are contacting the half-way to see what the requirements would be for that. May need to repeat Covid testing to ensure that it is negative prior to him returning to the half-way. 2. HTN/HLD -Blood pressure is stable -Continue with Lasix, his blood pressure is actually controlled just with the Lasix therefore can continue to hold losartan 3. DM 2 -We will hold all oral hypoglycemics, and transition to sliding scale insulin -Accu-Cheks AC at bedtime -Would not restart Metformin as his had a CTA demonstrating the PE 4. BPH -Stable -Continue with Flomax 5. Dementia -Stable -Continue with donepezil and memantine as well as Zoloft DVT: Eliquis Inpatient E&M: 49332 Subs Hosp L2
[2020-07-07 11:16] LABS: Bedside Glucose 276 mg/dL (70-110)
[2020-07-07 16:31] LABS: Bedside Glucose 298 mg/dL (70-110)
[2020-07-07] MEDS: Tamsulosin HCl 0.4 MG Capsule 0.8 MG PO (20:24)
[2020-07-07] MEDS: Donepezil HCl 10 MG Tablet PO (20:25)
[2020-07-07 22:30] LABS: Bedside Glucose 324 mg/dL (70-110)
[2020-07-08 03:30] VITALS: BP 123/58; PULSE 90; RESP 19; TEMP 36.5; O2SAT 94
[2020-07-08] MEDS: 0.9% Saline Lock 10 ML Syringe IV (03:33)
[2020-07-08] MEDS: Ondansetron 4 MG/2 ML Vial IV (03:34)
[2020-07-08 06:00] LABS: Absolute Lymphocyte Count 1.41 X10^3/uL (0.83-4.51); Absolute Neutrophil Count 14.9 X10^3/uL (2.0-7.7); Basophil# 0.07 X10^3/uL; Basophil% 0.4 % (0-1); Eosinophil# 0.11 X10^3/uL; Eosinophils% 0.6 % (0-5); Hematocrit 38.7 % (40-54); Hemoglobin 12.3 g/dL (13.0-16.5); Lymphocyte # 1.41 X10^3/ul (4.0); Lymphocyte % 7.7 % (19-41); Mean Corp Hgb Conc 31.8 g/dL (32-36); Mean Corpuscular Hgb 28.5 pg (27.0-32.0); Mean Corpuscular Volume 89.8 fL (80-94); Monocyte# 1.59 X10^3/uL; Monocyte% 8.7 % (0-10); NRBC Flagged by Analyzer 0 % (0-5); Neutrophil # 14.89 X10^3/uL (2.7-7.7); Neutrophil % 80.9 % (47-70); POSITIVE DIFFERENTIAL YES; Platelet Count 490 K/mm3 (150-450); RBC Distribution Width CV 12.7 % (11.6-14.6); RBC Distribution Width SD 42.2 fl (35.1-43.9); Red Blood Count 4.31 M/mm3 (4.6-6.2); White Blood Count 18.4 K/mm3 (4.4-11.0)
[2020-07-08 06:30] LABS: ALB/GLOB Ratio 0.6 RATIO (0.9-2.4); AST(SGOT) 24 U/L (15-37); Alanine Aminotransfer ALT/SGPT 36 U/L (16-61); Albumin, Serum 2.5 g/dL (3.2-5.0); Alkaline Phosphatase 78 U/L (45-117); Anion Gap 6 (5-15); BUN 28 mg/dL (7-18); Calcium,Total 8.9 mg/dL (8.5-10.1); Chloride 97 mmol/L (98-107); Globulin 4.5 g/dL (2.2-4.2); Glucose 195 mg/dL (74-106); Sodium Level 133 mmol/L (136-145)
[2020-07-08 06:41] LABS: Differential Comment SCANNED; Differential Indicated SCAN CRITERIA MET
[2020-07-08] MEDS: Bisacodyl 5 MG Tablet 10 MG PO (06:53)
[2020-07-08] MEDS: Insulin Lispro 100 UNIT/ML INSULN.PEN SC ×2 (06:53→10:45)
[2020-07-08 07:21] LABS: Bedside Glucose 180 mg/dL (70-110)
[2020-07-08 08:35] VITALS: BP 106/56; PULSE 63; RESP 18; TEMP 36.1; O2SAT 94
[2020-07-08] MEDS: Polyethylene Glycol 3350 17 GM PACKET PO (08:38)
[2020-07-08] MEDS: tiZANidine HCl 2 MG Tablet PO (08:39)
[2020-07-08] MEDS: Memantine Hydrochloride 5 MG Tablet PO (08:39)
[2020-07-08] MEDS: Furosemide 40 MG Tablet PO (08:39)
[2020-07-08] MEDS: dexAMETHasone 4 MG Tablet 6 MG PO (08:39)
[2020-07-08] MEDS: Aspirin E.C. 81 MG Tablet PO (08:39)
[2020-07-08] MEDS: Cyanocobalamin 500 MCG Tablet PO (08:39)
[2020-07-08] MEDS: SERTRALINE HCL 25 MG TABLET 12.5 MG PO (08:39)
[2020-07-08] MEDS: Losartan Potassium 25 MG Tablet PO (08:39)
[2020-07-08] MEDS: Folic Acid 1 MG Tablet PO (08:40)
[2020-07-08] MEDS: APIXABAN 5 MG TABLET 10 MG PO (08:40)
[2020-07-08 11:06] LABS: Bedside Glucose 225 mg/dL (70-110)
[2020-07-08 11:45] VITALS: O2SAT 94
--- NOTE | 2020-07-08 12:28 | PCM.TXEXTCAR ---
- Diet 07/06/20 17:13 Diet: Regular - General Food consistency:: Mechanical (Minced/Moist) Type of Dietary Supplement:: Magic Cup Dessert Is pt able to select menu?: No Diet Comments: chocolate MC at dinner - Routine Orders/Code Status O2 Liters per Minute: 2 O2 Frequency: Continuous Keep PO Greater than or Equal to (%): 94 - Encourage use of incentive spirometer Routine Lab Work: CBC - within 3 days, BMP - within 3 days - Wound(s) left big toe Wound Type: Abrasion left knee Wound Type: Abrasion right big toe Wound Type: Abrasion LEFT 2ND TOE Wound Type: Abrasion LEFT 5TH TOE Wound Type: Abrasion - Therapies Weight Bearing: Weight bearing as tolerated Extremity Affected:: Bilateral Lower Physical Therapy: Eval and Treat Occupational Therapy: Eval and Treat - Allergies/Procedures Done in Hospital Allergies/Adverse Reactions: Allergies No Known Allergies Allergy (Verified 12/01/16 19:19) Procedures: None - Type of Care/Length of Stay Estimated LOS: Convalescent Care Less Than 30 days Type of Care Needed: Skilled Rehab Potential: Fair Prognosis: Fair - Additional Orders/Day of Discharge Day of Discharge: 07/08/20 - Dietary and Speech Recommendations Dietitian Recommendations/Changes: Will change diet to regular d/t risk for malnutrition. Will add chocolate magic cup w/ dinner. - Follow Up Care Primary Care Physician: Nasir López MD [NON-STAFF] - Please follow up with your Primary Care Physician in: within 2 weeks
[2020-07-08 12:32] VITALS: BP 109/59; PULSE 66; RESP 16; TEMP 37; O2SAT 97
--- NOTE | 2020-07-08 13:08 | CASEMGMT ---
Addendum entered by Tabby Jones 07/08/20 14:48: Social Work Pt ready for discharge. Orders faxed to [facility] and transportation arranged with [facility] ambulance for 3:30 pickup via cot. Phone call to pt and updated. Phone call to Kathi at [facility] and updated on discharge time. RN notified. JOHNATHON Gaines Original Note: Social Work SW spoke with Kathi at [facility] who states they can accept pt back today and pt will return to the covid unit. Pt will be able to transfer back to this room on the regular room starting tomorrow. Physician updated and plan is for pt to discharge today. Phone call to pt significant other and updated on this, she is agreeable to discharge today. VM left with Kathi at [facility] informing of pt return today. KAVYA will follow to coordinate discharge. JOHNATHON Gaines
--- NOTE | 2020-07-08 13:10 | PCM.DC.SUM ---
Discharge Date and Diagnosis - Problem List Patient Problems: Active and Suspected Problems COVID-19 (Acute) Hypoxia (Acute) Parkinson's disease dementia (Acute) Dehydration (Acute) Encephalopathy acute (Acute) Pulmonary embolism (Acute) Date of Admission: 07/03/20 Date of Discharge: 07/08/20 - Primary Discharge Diagnosis Acute Problems: Active Problems Acute hypoxic respiratory failure Acute COVID-19 infection Bilateral PE secondary to COVID-19 infection Hyponatremia - Secondary Discharge Diagnosis Chronic Problems: Chronic Problems Diabetes (Chronic) Neuropathy (Chronic) Charcot ankle (Chronic) Insomnia (Chronic) Hospital Course and Treatment Imaging Results: Clinical Impression(s) from Imaging Studies Chest X-Ray 07/03/20 13:15 IMPRESSION: Patchy bilateral pulmonary infiltrates worse in the lower lobes. Electronically Signed: Jose Villalobos, at 13:56 EST , Service support , Chest CTA 07/03/20 14:32 IMPRESSION: Multiple small pulmonary emboli in the upper lobe pulmonary arterial branches. Diffuse bilateral pulmonary infiltrates as described. 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 Patient had a COVID-19 test done in the retirement and was started on azithromycin, hydroxychloroquine and zinc. He was however saturating in the 80s. He was seen in the emergency department, he was hypoxic, confused. Admitting chest x-ray showed patchy bilateral pulmonary infiltrates worse in the lower lobes. CTA of the chest showed multiple small PEs in the upper lobe as well as diffuse bilateral pulmonary infiltrates. Patient was started on anticoagulation as Decadron. He completed Remdesivir in the hospital. Patient was discharged to complete a total 10-day course of Decadron. He was also discharged on Eliquis. Patient initially required 10 L of oxygen, and was weaned down to 2 L of oxygen at discharge. Patient Problems: Active and Suspected Problems COVID-19 (Acute) Hypoxia (Acute) Parkinson's disease dementia (Acute) Dehydration (Acute) Encephalopathy acute (Acute) Pulmonary embolism (Acute) Subjective: On the day of discharge, patient was seen and examined. No acute events overnight. He is alert oriented to self. Objective: Physical exam: General: Alert, Confused, on 2 L of oxygen HEENT: Atraumatic, PERRLA, EOMI, Normocephalic Oral: Moist Mucosa Neck: Supple, No JVD Lungs: Normal air movement, No rhonchi, No wheeze, No rales, Diminished Cardiovascular: Regular rate, Regular Rhythm, Normal S1, Normal S2, No murmurs Abdomen: Soft, Non Tender, Non-Distended, No Hepato-splenomegaly Extremities: No edema, Capillary Refill Less than 3 Seconds Skin: No rashes, No breakdown Neurological: Neuro grossly intact, Sensory exam intact to light touch and pain Psych/Mental Status: Flat Affect - Physical Exam Vitals/I&O's: Vital Signs Temp Pulse Resp BP Pulse Ox 98.6 F 66 16 109/59 L 97 07/08/20 12:32 07/08/20 12:32 07/08/20 12:32 07/08/20 12:32 07/08/20 12:32 Oxygen Flow Rate (L/min) 2 Oxygen Delivery Method Nasal Cannula Weight: 99.5 kg Body Mass Index (BMI) 29.7 Intake and Output for Last 24 Hours 07/06/20 07/07/20 07/08/20 23:59 23:59 23:59 Intake Total 250 / 600 850 / 850 750 / 750 Balance 250 / 600 850 / 850 750 / 750 Microbiology Past 72 Hours 07/03/20 13:30 Blood Culture (Wb) - Left Wrist Blood Culture - Preliminary No growth in 48 hours. 07/03/20 13:25 Blood Culture (Wb) - Anticubital Right Blood Culture - Preliminary No growth in 48 hours. Laboratory Results 07/07/20 16:19: POC Glucose 298 H 07/07/20 20:14: POC Glucose 324 H 07/08/20 05:02: WBC 18.4 H, RBC 4.31 L, Hgb 12.3 L, Hct 38.7 L, MCV 89.8, MCH 28.5, MCHC 31.8 L, RDW Std Deviation 42.2, RDW Coeff of Srinivasa 12.7, Plt Count 490 H, MPV 10.0, Immature Gran % (Auto) 1.700 H, Neut % (Auto) 80.9 H, Lymph % (Auto) 7.7 L, [place] % (Auto) 8.7, Eos % (Auto) 0.6, Baso % (Auto) 0.4, Absolute Neuts (auto) 14.9 H, Absolute Lymphs (auto) 1.41, Nucleated RBC % 0, Differential Comment SCANNED, Diff Path Review December07/08/20 05:02: Sodium 133 L, Potassium 4.0, Chloride 97 L, Carbon Dioxide 30.0, Anion Gap 6, BUN 28 H, Creatinine 0.89, Estim Creat Clear Calc 79.93, Est GFR (MDRD) Af Amer 108, Est GFR (MDRD) Non-Af 89, BUN/Creatinine Ratio 31.5 H, Glucose 195 H, Calcium 8.9, Total Bilirubin 0.60, AST 24, ALT 36, Alkaline Phosphatase 78, Total Protein 7.0, Albumin 2.5 L, Globulin 4.5 H, Albumin/Globulin Ratio 0.6 L 07/08/20 06:52: POC Glucose 180 H 07/08/20 10:45: POC Glucose 225 H Current Medications Acetaminophen (Acetaminophen 325 Mg Tablet) 650 mg PO Q4H PRN PRN PRN Reason: Pain Score 1-3 /Temp>100.7 Albuterol Sulfate (Albuterol Sulfate 8 Gm Inhaler (60 Puffs)) 2 puff INHALATION Q4H PRN PRN PRN Reason: Shortness of Breath/Wheezing Apixaban (Apixaban 5 Mg Tablet) 10 mg PO BID@0800,2200 [facility]; Taper Stop: 01/06/21 21:59 Last Admin: 07/08/20 08:40 Dose: 10 mg Documented by: Aspirin (Aspirin E.C. 81 Mg Tablet) 81 mg PO DAILY@0800 [facility] Last Admin: 07/08/20 08:39 Dose: 81 mg Documented by: Bisacodyl (Bisacodyl 5 Mg Tablet) 10 mg PO DAILY PRN PRN PRN Reason: Constipation Last Admin: 07/08/20 06:53 Dose: 10 mg Documented by: Cholecalciferol (Cholecalciferol (Vit D3) 1,000 Unit (25mcg)) [facility] Last Admin: 07/08/20 08:39 Dose: 2,000 unit Documented by: Cyanocobalamin (Cyanocobalamin 500 Mcg Tablet) [facility] Last Admin: 07/08/20 08:39 Dose: 500 mcg Documented by: Dexamethasone (Dexamethasone 4 Mg Tablet) 6 mg PO DAILY [facility] Stop: 07/12/20 10:01 Last Admin: 07/08/20 08:39 Dose: 6 mg Documented by: Dextrose (Dextrose 50%-Water 25 Gm/50 Ml Disp.Syrin) 0 gm IV X1 PRN; Protocol PRN Reason: Hypoglycemia Docusate Sodium (Docusate Sodium 100 Mg Capsule) 200 mg PO BID PRN PRN PRN Reason: Constipation Donepezil HCl (Donepezil Hcl 10 Mg Tablet) 10 mg PO QHS [facility] Last Admin: 07/07/20 20:25 Dose: 10 mg Documented by: Folic Acid (Folic Acid 1 Mg Tablet) [facility] Last Admin: 07/08/20 08:40 Dose: 1 mg Documented by: Furosemide (Furosemide 40 Mg Tablet) [facility] Last Admin: 07/08/20 08:39 Dose: 40 mg Documented by: Glucagon (Glucagon 1 Mg/Ml Syringe) 1 mg IM .X1 PRN PRN Reason: Hypoglycemia Guaifenesin (Guaifenesin Dm 10 Ml Udc) 10 ml PO Q6H PRN PRN Reason: CONGESTION Sodium Chloride () 250 mls @ 15 mls/hr IV .[id number] PRN PRN Reason: Saline Flush Last Infusion: 07/05/20 09:36 Dose: Infused Documented by: Sodium Chloride () 250 mls @ 15 mls/hr IV .[id number] PRN PRN Reason: Additional IVPB Infusion Insulin Human Lispro (Insulin Lispro 100 Unit/Ml Insuln.Pen) 0 unit SC [facility]; Protocol Last Admin: 07/08/20 10:45 Dose: 4 u Documented by: Losartan Potassium (Losartan Potassium 25 Mg Tablet) [facility] Last Admin: 07/08/20 08:39 Dose: 25 mg Documented by: Memantine (Memantine Hydrochloride 5 Mg Tablet) 5 mg PO 0800,2200 [facility] Last Admin: 07/08/20 08:39 Dose: 5 mg Documented by: Ondansetron HCl (Ondansetron 4 Mg/2 Ml Vial) 4 mg IV Q8H PRN PRN PRN Reason: NAUSEA/VOMITING Last Admin: 07/08/20 03:34 Dose: 4 mg Documented by: Polyethylene Glycol (Polyethylene Glycol 3350 17 Gm Packet) 17 gm PO DAILY [facility] Last Admin: 07/08/20 08:38 Dose: 17 gm Documented by: Potassium Chloride (Potassium Chloride 10 Meq Tablet) [facility]q [facility] Last Admin: 07/08/20 08:39 Dose: 10 meq Documented by: Prochlorperazine Edisylate (Prochlorperazine 10 Mg/2 Ml Vial) 10 mg IV Q6H PRN PRN PRN Reason: Nausea/Vomiting Sertraline HCl (Sertraline Hcl 25 Mg Tablet) 12.[facility] Last Admin: 07/08/20 08:39 Dose: 12.5 mg Documented by: Sodium Chloride (0.9% Saline Lock 10 Ml Syringe) 10 - 40 ml IV UD PRN PRN Reason: SALINE FLUSH Last Admin: 07/08/20 03:33 Dose: 20 ml Documented by: Tamsulosin HCl (Tamsulosin Hcl 0.4 Mg Capsule) 0.8 mg PO QHS [facility] Last Admin: 07/07/20 20:24 Dose: 0.8 mg Documented by: Tizanidine HCl (Tizanidine Hcl 2 Mg Tablet) 2 mg PO 0800,0 [facility] Last Admin: 07/08/20 08:39 Dose: 2 mg Documented by: Discharge Diet: No Restrictions Discharge Activity: Return to Normal Activity Home Medications: Medications to take at Discharge Aspirin E.C. [Ecotrin] 81 mg PO DAILY@0800 07/03/20 Cholecalciferol (Vitamin D3) [D3-2000] 2,000 unit PO DAILY 07/03/20 Cyanocobalamin (Vitamin B-12) [Vitamin B-12] 500 mcg PO DAILY 07/03/20 Donepezil HCl 10 mg PO QHS 07/03/20 Folic Acid 1 mg PO DAILY 07/03/20 Furosemide [Lasix] 40 mg PO DAILY 07/03/20 Guaifenesin/Dextromethorphan [Tussin Dm Liquid] 10 ml PO Q6H PRN 11/18/20 Losartan Potassium [Cozaar] 25 mg PO DAILY 07/03/20 Memantine HCl 5 mg PO BID 07/03/20 Potassium Chloride [Klor-Con M10] 10 meq PO DAILY 07/03/20 Sertraline HCl [Zoloft] 12.5 mg PO DAILY 07/03/20 Tamsulosin HCl [Flomax] 0.8 mg PO QHS 07/03/20 Tizanidine HCl 2 mg PO BID 07/03/20 metFORMIN HCl [Glucophage] 500 mg PO BIDCM 07/03/20 Acetaminophen [Tylenol Tablet] 650 mg PO Q4H PRN PRN tab 07/08/20 Albuterol Inhaler [Ventolin Hfa] 2 puff INHALATION Q4H PRN PRN inhaler 07/08/20 Apixaban [Eliquis] 10 mg PO BID@0800,2200 tab 07/08/20 Dexamethasone [Decadron] 6 mg PO DAILY tab 07/08/20 Insulin Lispro [Humalog KwikPen] See Protocol SC ACHS insuln.pen 07/08/20 Primary Care Physician: Nasir López MD [NON-STAFF] - Please follow up with your Primary Care Physician in: within 2 weeks Disposition: Nursing Home facility Minutes spent on discharge:: 45 Patient Condition:: Stable Medical Necessity - Tobacco Use Smoking Status: Never smoker Tobacco Use: Non-smoker Meaningful Use Info Meaningful Use Diagnoses (Choose all that apply): None applicable Inpatient E&M: 32221 Subs Hosp L2
[2020-07-08 13:42] LABS: Pathologist Review Reviewed
[2020-07-08 17:05] LABS: BUN/Creat Ratio 49.1 RATIO (10-20); Creatinine, Serum 0.57 mg/dL (0.70-1.30); EST Glomerular Filtration Rate 149 mL/min (>60); Est Glom Filt Rate - Afr Amer 181 mL/min (>60); Estimated Creatinine Clearance 71.13 ml/min
== END 2020-07-08 16:10 | disposition skilled nursing facility (03) | DRG 177 ==
LOC: ED 15:44 → MS2 16:05
PROVIDERS: Family Medicine; Internal Medicine; Admitting Provider Student in an Organized Health Care Education/Training Program; Emergency Provider Emergency Medicine; PCP Family Medicine; Visit Provider Internal Medicine
DX: U07.1 COVID-19 (principal); I26.99 Other pulmonary embolism without acute cor pulmonale; J96.01 Acute respiratory failure with hypoxia; J12.89 Other viral pneumonia; G93.40 Encephalopathy, unspecified; E87.1 Hypo-osmolality and hyponatremia; D68.69 Other thrombophilia; F02.80 Dementia in other diseases classified elsewhere, unspecified severity, without behavioral disturbance, psychotic disturbance, mood disturbance, and anxiety; G20 Parkinson's disease; E86.0 Dehydration; Z66 Do not resuscitate; E11.610 Type 2 diabetes mellitus with diabetic neuropathic arthropathy; E11.40 Type 2 diabetes mellitus with diabetic neuropathy, unspecified; I10 Essential (primary) hypertension; N40.0 Benign prostatic hyperplasia without lower urinary tract symptoms; E78.5 Hyperlipidemia, unspecified
CPT/HCPCS: 36415; 71045; 71275; 80053; 82550; 82962; 83605; 83615; 83735; 83880; 84145; 84484; 85025; 85384; 86140; 87040; 87449; 93005; 97110; 97162; 97166; 97530; 97535; 99285; J7030; J7050; Q9967; A4216; J2405